=== PATIENT | male | born 1945 | race Caucasian/White ===

== ENCOUNTER 2017-08-21 15:05 | Inpatient (IN) | payer MEDICARE, OTHER ==
--- NOTE | 2017-08-21 15:54 | ED ---
Upper Extremity HPI - General Chief Complaint: Extremity Injury, Upper Stated Complaint: Hand infection Time Seen by Provider: 08/21/17 15:30 Source: patient Mode of arrival: ambulatory Limitations: no limitations - History of Present Illness Initial Comments: Patient presents with pain and swelling on the left pinky finger. Patient states that last he poked it with a piece of plastic pipe, at the base of the pinky on his palmar side. States no foreign bodies or broken pieces that he knows of. Was seen by primary care physician who gave him a shot of Rocephin and prescribed him Bactrim. States she's been taking Bactrim for 2 days. States swelling on the backside of his hand improve, however he has had increased swelling and redness of the left pinky finger. - Related Data Home Medications Medication Instructions Recorded Confirmed Albuterol Nebulized (Conc) 2.5 mg INHALATION RT-Q4H PRN 08/21/17 08/21/17 [Ventolin Nebulized (Conc)] Citalopram Hydrobromide [CeleXA] 30 mg PO DAILY 08/21/17 08/21/17 buPROPion XL [Wellbutrin Xl] 150 mg PO DAILY 08/21/17 08/21/17 Allergies Allergy/AdvReac Type Severity Reaction Status Date / Time No Known Allergies Allergy Verified 08/21/17 15:47 Review of Systems ROS Statement: Those systems with pertinent positive or pertinent negative responses have been documented in the HPI. ROS Other: All systems not noted in ROS Statement are negative. Constitutional: Denies: fever, chills Eyes: Denies: vision change ENT: Denies: throat pain Respiratory: Denies: dyspnea Cardiovascular: Denies: chest pain, palpitations Endocrine: Denies: fatigue Gastrointestinal: Denies: abdominal pain, nausea, vomiting Musculoskeletal: Reports: joint swelling, arthralgia. Denies: myalgia Skin: Reports: other (erythema of finger) Neurological: Denies: headache, weakness, numbness Past Medical History Past Medical History: No Reported History History of Any Multi-Drug Resistant Organisms: None Reported Past Surgical History: Orthopedic Surgery Past Psychological History: No Psychological Hx Reported Smoking Status: Never smoker Past Alcohol Use History: Occasional Past Drug Use History: None Reported General Exam - General Exam Comments Initial Comments: Sitting up in bed smiling. No acute distress. Conversing normally. Calm, pleasant. Well appearing. Well-dressed. Not appear in pain. Limitations: no limitations General appearance: alert, in no apparent distress Head exam: Present: atraumatic, normocephalic Eye exam: Present: normal appearance, PERRL, EOMI ENT exam: Present: mucous membranes moist Neck exam: Present: normal inspection. Absent: meningismus Respiratory exam: Present: normal lung sounds bilaterally. Absent: respiratory distress, wheezes, rales Cardiovascular Exam: Present: regular rate, normal rhythm GI/Abdominal exam: Present: soft. Absent: distended, tenderness Extremities exam: Present: other (Moderate swelling of the entire left pinky finger. No swelling of the hand appreciated. 5 mm scab palmar surface of left hand at the base of the left pinky finger. Mild pain with passive extension the pinky finger. Mild tenderness over palmar surface of left pinky finger. Base of left piggy finger appears erythematous.) Neurological exam: Present: alert, oriented X3 Psychiatric exam: Present: normal affect, normal mood Skin exam: Present: warm, dry, erythema (See extremities above.) Course Vital Signs 08/21/17 15:13 Temperature 97.6 F Pulse Rate 81 Respiratory 16 Rate Blood Pressure 194/90 O2 Sat by Pulse 96 Oximetry Medical Decision Making - Medical Decision Making Patient given Rocephin, 2 days of Bactrim, with worsening. Concern for possible flexor tenosynovitis. We'll obtain x-ray to rule out foreign body. We 'll start vancomycin and Rocephin. Xray negative for foreign body SPoke with ortho team, request admit to Dr Olmedo, consult to ID Dr Morrissey, will come see tonight for possible debridement, NPO. Patient updated with results and plan. Antibiotics infusing. Patient nothing by mouth. - Lab Data Result diagrams: 08/21/17 16:35 08/21/17 16:35 Lab Results 08/21/17 08/21/17 Range/Units 16:35 16:35 WBC 6.3 (3.8-10.6) k/uL RBC 4.87 (4.30-5.90) m/uL Hgb 16.0 (13.0-17.5) gm/dL Hct 45.5 (39.0-53.0) % MCV 93.5 (80.0-100.0) fL MCH 32.8 (25.0-35.0) pg MCHC 35.0 (31.0-37.0) g/dL RDW 13.0 (11.5-15.5) % Plt Count 217 (150-450) k/uL Neutrophils % 64 % Lymphocytes % 24 % Monocytes % 6 % Eosinophils % 3 % Basophils % 0 % Neutrophils # 4.0 (1.3-7.7) k/uL Lymphocytes # 1.5 (1.0-4.8) k/uL Monocytes # 0.4 (0-1.0) k/uL Eosinophils # 0.2 (0-0.7) k/uL Basophils # 0.0 (0-0.2) k/uL Sodium 140 (137-145) mmol/L Potassium 4.5 (3.5-5.1) mmol/L Chloride 105 (98-107) mmol/L Carbon Dioxide 24 (22-30) mmol/L Anion Gap 11 mmol/L BUN 20 (9-20) mg/dL Creatinine 0.90 (0.66-1.25) mg/dL Est GFR (CKD-EPI)AfAm >90 (>60 ml/min/1.73 sqM) Est GFR (CKD-EPI)NonAf 85 (>60 ml/min/1.73 sqM) Glucose 97 (74-99) mg/dL Calcium 9.2 (8.4-10.2) mg/dL Disposition Clinical Impression: Flexor tenosynovitis of finger Disposition: ADMITTED IP TO THIS [facility] Condition: Good Referrals: Neelima Maciel MD [Primary Care Provider] - 1-2 days
[2017-08-21] MEDS ORDERED: VANCOMYCIN IV PER PHARMACY 1 EACH MISC MISCELLANE PRN (16:02)
[2017-08-21] MEDS ORDERED: cefTRIAXone IN SWFI 1,000 MG/10 ML SYRINGE IVP STA (16:09)
[2017-08-21] MEDS ORDERED: VANCOMYCIN 1,250 MG in SODIUM CHLORIDE 0.9% 250 ML IVPB STA (16:13)
--- NOTE | 2017-08-21 16:16 | XR ---
EXAMINATION TYPE: XR hand limited LT DATE OF EXAM: 08/21/2017 CLINICAL HISTORY: Infection of the left posterior hand with swelling, pain, and redness after fibergl ass injury. TECHNIQUE: Frontal and lateral images of the left hand are obtained. COMPARISON: None. FINDINGS: There is no acute fracture/dislocation evident in the left hand. The joint spaces in the l eft hand appear within normal limits. The overlying soft tissue appears unremarkable. IMPRESSION: There is no acute fracture or dislocation in the left hand. No radiopaque foreign body.
[2017-08-21 16:53] LABS: Basophils % (A) 0 %; Eosinophils # (A) 0.2 k/uL (0-0.7); Eosinophils % (A) 3 %; HCT 45.5 % (39.0-53.0); Lymphocytes # (A) 1.5 k/uL (1.0-4.8); Lymphocytes % (A) 24 %; MCH 32.8 pg (25.0-35.0); MCV 93.5 fL (80.0-100.0); Mean Platelet Volume 6.8; Monocytes # (A) 0.4 k/uL (0-1.0); Monocytes % (A) 6 %; Neutrophils % (A) 64 %; Platelet Count 217 k/uL (150-450); RBC 4.87 m/uL (4.30-5.90); WBC 6.3 k/uL (3.8-10.6)
[2017-08-21 17:00] LABS: Anion Gap 11 mmol/L; Blood Urea Nitrogen 20 mg/dL (9-20); Calcium 9.2 mg/dL (8.4-10.2); Carbon Dioxide 24 mmol/L (22-30); Chloride 105 mmol/L (98-107); Glucose 97 mg/dL (74-99); Potassium 4.5 mmol/L (3.5-5.1); Sodium 140 mmol/L (137-145)
[2017-08-21] MEDS ORDERED: NALOXONE 0.4 MG/ML 1 ML VIAL IV PRN (17:04)
[2017-08-21 18:27] VITALS: BMI 22.0
[2017-08-21] MEDS: cefTRIAXone IN SWFI 1,000 MG/10 ML SYRINGE IVP SCH (19:04)
[2017-08-21] MEDS: SODIUM CHLORIDE 0.9% 1,000 ML IV SCH (19:04)
--- NOTE | 2017-08-21 19:45 | P.HPOR ---
History of Present Illness H&P Date: 08/21/17 Chief Complaint: Left small finger pain and swelling likely infection Patient is a very pleasant 71-year-old male who presented to the emergency room today regards to swelling and pain in his left small finger. He is right-hand dominant. He underwent an issue about a week ago when he was holding a plastic pipe and splinter in his hand around the small finger. This worsened over the course of the week and became red and swollen. Yesterday he presented to his primary care physician who gave him a shot of Rocephin and started him on Bactrim DS. He started the Bactrim discussed this morning. He was having some worsening and presented to the emergency room where he had evaluation x-rays and was ultimately admitted for possible flexor tenosynovitis. He was started on vancomycin here in the hospital and has been making good progress thus far here in the hospital. He says he is not having any significant pain. He is able to move his finger. He denies any fevers chills. Denies any other problems other injuries. Review of Systems he denies pain in his wrist or elbow. Denies any chest pain short Buitrago. He denies any recent illness. Denies any prior problems with hisleft hand. He is [id number] Past Medical History Past Medical History: No Reported History (He has some history of anxiety) History of Any Multi-Drug Resistant Organisms: None Reported Past Surgical History: Orthopedic Surgery Past Anesthesia/Blood Transfusion Reactions: No Reported Reaction Past Psychological History: No Psychological Hx Reported Smoking Status: Never smoker Past Alcohol Use History: Occasional Past Drug Use History: None Reported - Past Family History mother History Unknown: Yes Family Medical History: Diabetes Mellitus Medications and Allergies Home Medications Medication Instructions Recorded Confirmed Type Albuterol Nebulized (Conc) 2.5 mg INHALATION RT-Q4H PRN 08/21/17 08/21/17 History [Ventolin Nebulized (Conc)] Citalopram Hydrobromide [CeleXA] 30 mg PO DAILY 08/21/17 08/21/17 History buPROPion XL [Wellbutrin Xl] 150 mg PO DAILY 08/21/17 08/21/17 History Allergies Allergy/AdvReac Type Severity Reaction Status Date / Time No Known Allergies Allergy Verified 08/21/17 15:47 Physical Examination Osteopathic Statement: *. No significant issues noted on an osteopathic structural exam other than those noted in the History and Physical/Consult. - Wrist & Hand left Location of pain: volar hand, small finger (At his left small finger he has a scab over the head of the metacarpal. There is no active drainage. There is some swelling and some erythema around the area. There is swelling over his small finger. There is no streaking up his arm. There is no erythema in his palm. He is nontender over his palm. He is able to have some motion though it is somewhat limited due to the swelling in his finger. He is able to flex and extend his finger actively. There is no significant pain with active stretch at his small finger or his other fingers. He is able to move his wrist fully without any hesitation or pain he has full active and passive range motion in his elbow and shoulder.Nontender. His chest is good excursion deep inspection expiration abdomen soft nontender his lower extremity is full active and passive range of motion.) Results His white count is normal. He is afebrile. - Labs Labs: H & H 08/21/17 Range/Units 16:35 Hgb 16.0 (13.0-17.5) gm/dL Hct 45.5 (39.0-53.0) % Result Diagrams: 08/21/17 16:35 08/21/17 16:35 - Diagnostic results Wrist/Hand x-ray: report reviewed (I reviewed the x-ray of his left hand and fingers. There is no obvious foreign body. There is some soft tissue swelling the small finger. There is no active dislocation there is no fracture.), image reviewed Assessment and Plan Assessment: Swelling at the left small finger with cellulitis Possible retained foreign body left small finger Possible flexor tenosynovitis Plan: Swelling at the left small finger with cellulitis Possible retained foreign body left small finger Possible flexor tenosynovitis The patient has swelling over his left small finger due to an injury from a piece of plastic approximately week ago. This is worsening and he started on some antibiotics yesterday. He continued to have some swelling today and was admitted hospital in this regard. He has motion at his small finger and does not appear to have acute flexor tenosynovitis. There is no pain out of proportion and he does not have sausage digits or streaking. His white count is normal and he is afebrile. He has been making some progress with antibiotics here in Hospital and we should continue that through the night. I do not have plans for surgical intervention today however if his symptoms not continue to improve we may consider surgical intervention. Is okay for him to eat tonight but we'll make him nothing by mouth after midnight tonight for possible irrigation and debridement of the wound site in his left small finger and hand. He may have retained foreign body at the area which is perpetuating the swelling and infection. He does have some some local cellulitis which seems to be improving but there is some swelling which may were present some fluid under pressure which may require surgical intervention with irrigation and debridement. I will reevaluate him in the morning and decide whether or not to proceed with surgical intervention tomorrow. We'll make him nothing by mouth after minutes and then the schedule tentatively. I discussed the risk of his hand infection and the risk of occasions alternatives and benefits associated with his injury as well as surgical intervention. I answered his questions best my ability and he is agreeable.
[2017-08-21] MEDS ORDERED: amLODIPine 5 MG TAB PO SCH (21:08)
[2017-08-22] MEDS ORDERED: VANCOMYCIN 1,250 MG in SODIUM CHLORIDE 0.9% 250 ML IVPB SCH (05:00)
[2017-08-22] MEDS: SODIUM CHLORIDE 0.9% 1,000 ML IV SCH (05:57)
--- NOTE | 2017-08-22 09:00 | P.DS ---
Providers Date of admission: 08/21/17 17:16 Attending physician: Dandre Olmedo Consults: 08/21/17 17:06 Consult Physician Routine Consulting Provider: Santi Morrissey Consult Reason/Comments: flexor tenosynovitis Do you want consulting provider notified?: Yes 08/21/17 19:52 Consult Physician Routine Consulting Provider: Jamal Davila Consult Reason/Comments: For medical management Do you want consulting provider notified?: Yes Primary care physician: Neelima Maciel Hospital Course: The patient presented on the day of admission as per his history and physical. He had swelling and erythema at his left hand toward his small finger due to an injury that occurred with a piece of plastic cutting his hand approximately a week ago. He went through one day of antibiotics but was having some worsening and presented to the hospital where he was admitted and started on IV antibiotics. Overnight he has done significantly better and the swelling is decreased as has the erythema and redness. He is not having any pain in his fingers he has good motion of his fingers and hand. He is not having any fevers chills. Physical Exam At his left hand the erythema is significantly decreased. There is limited swelling over a small 0.5 x 1.5 cm space around the half centimeter in wound. There is no active drainage. He has good motion in his finger and hand. There is no pain out of proportion. There is no pain with passive stretch. Abdomen soft and nontender. Chest has good excursion with deep inspiration and expiration. The patient has active and passive range of motion intact at the upper and lower extremities. There is no acute change in neurologic status. Hospital Course Cellulitis left hand and small finger. Small superficial abscess at the base of the small finger Significant improvement with antibiotics No evidence of flexor tenosynovitis The patient's symptoms improved significantly with the antibiotics here in Hospital. His erythema has decreased as has the swelling. There is a small area at the volar aspect of the fifth metacarpal head at the base of his pinky and I think that we can open up that space here bedside. Today at bedside I divided the superficial aspect of the wound at the volar aspect of his small finger and hand. His proximal half centimeter in size. I was able to probe into the space approximately 3-5 mm deep. There is no significant pus or purulence. There is some cloudy blood and discharge at the space. I did not see any foreign body or material. This was performed under loupe magnification. There is no increased fluid from milking the flexor tendons. There is no evidence of involvement of the flexor tendon. The fluid appeared to be superficial in the soft pad overlying his metacarpal head. There did not seem to be any joint involvement. The wound was copiously irrigated with 1 L of normal saline. There is no evidence of purulence or pus. The area was cleaned and dressed with Telfa 4 x 4's and a Juan wrap. The patient tolerated the procedure well at bedside. The patient has made good improvement and it is okay for him to be discharged home today with oral antibiotics. I think it is okay for him to resume the Bactrim that was prescribed. He should continue local wound care over the area and keep the site clean. I would like to see him back on Thursday at the office for recheck evaluation. He is instructed if he is having significant worsening to return to the hospital. I discussed this with him at length and third his questions best my ability. I spoke with his as well. They are agreeable. Overnight the patient did have some readings of elevated blood pressure in the 180s over 80s. He says he has not had issues with this before. He checks his blood pressure regularly and says that he will follow-up with this with his primary care physician, Dr. Maciel. The patient is okay for discharge home this morning with continued oral antibiotics and follow up on Thursday with me. Patient Condition at Discharge: Fair Plan - Discharge Summary New Discharge Prescriptions: No Action buPROPion XL [Wellbutrin Xl] 150 mg PO DAILY Citalopram Hydrobromide [CeleXA] 30 mg PO DAILY Albuterol Nebulized (Conc) [Ventolin Nebulized (Conc)] 2.5 mg INHALATION RT- Q4H PRN PRN Reason: Shortness Of Breath Discharge Medication List Albuterol Nebulized (Conc) [Ventolin Nebulized (Conc)] 2.5 mg INHALATION RT-Q4H PRN 08/21/17 [History] Citalopram Hydrobromide [CeleXA] 30 mg PO DAILY 08/21/17 [History] buPROPion XL [Wellbutrin Xl] 150 mg PO DAILY 08/21/17 [History] Follow up Appointment(s)/Referral(s): Neelima Maciel MD [Primary Care Provider] - 1-2 days Dandre Olmedo DO [Doctor of Osteopathic Medicine] - 08/24/17 8:00 am (Patient [facility] Thursday[facility] at 8 AM. Patient should let the front end loader driver at the office know that he was seen at Hospital and that I instructed him to show up at the office for an appointment for Thursday, as there may be limited medication with the office over the weekend prior to his arrival.) Activity/Diet/Wound Care/Special Instructions: Keep wound site clean. May change dressing with dry dressing tomorrow morning. Keep the area dry. Avoid heavy work with left hand. He should continue with his oral Bactrim that he was prescribed by Dr. Maciel. He should restart that later today. Discharge Disposition: HOME SELF-CARE
[2017-08-22 09:16] VITALS: BP 153/83; PULSE 85; RESP 20; TEMP 98.7
[2017-08-22] MEDS: cefTRIAXone IN SWFI 1,000 MG/10 ML SYRINGE IVP SCH (09:27)
== END 2017-08-22 09:45 | disposition home or self-care (01) | DRG 603 ==
LOC: EC 15:05 → 3SUR 17:16
PROVIDERS: ADMIT Orthopaedic Surgery Orthopaedic Surgery of the Spine; ATTEND Orthopaedic Surgery Orthopaedic Surgery of the Spine
DX: L03.012 Cellulitis of left finger (principal); F41.9 Anxiety disorder, unspecified; R03.0 Elevated blood-pressure reading, without diagnosis of hypertension; Z79.899 Other long term (current) drug therapy; Z83.3 Family history of diabetes mellitus
CPT/HCPCS: 36415; 80048; 85025; 96365; 96375; 99284

== ENCOUNTER → 2019-05-11 | Outpatient (CLI) | payer MEDICARE ==
--- NOTE | 2019-05-11 10:08 | MR ---
EXAMINATION TYPE: MR iac wo/w con DATE OF EXAM: 05/11/2019 COMPARISON: None HISTORY: Imbalance TECHNIQUE: Multiplanar, multisequence images of the brain and brainstem is performed with high-resolution and sm all [id number] images through the internal auditory canals without and with IV contrast, utilizing 7 mL intravenous Gadavist . FINDINGS: Diffusion weighted images demonstrate no evidence of a recent infarct or other diffusion ab normality. There is no extra-axial fluid collection. There is extensive confluent hyperintensity in the periventricular white matter on inversion recovery T2-weighted sequences, scattered hyperintensi ties are also present in the subcortical and juxtacortical white matter, there are approximately 50 o r more lesions present. The ventricular system and cisternal spaces are normal in size and appearance . The brain volume is age appropriate, there is cortical atrophy. Midline structures demonstrate normal morphology. The craniocervical junction appears within normal limits. Post contrast images demonstrate no abnormal enhancement. The dural venous sinuses appear pa tent. The visualized sinuses are clear and the globes are intact. IMPRESSION: Age-related changes of atrophy and chronic small vessel ischemia. No evident cerebellopon lynette angle mass or abnormal enhancement along the internal auditory canals.
== END | disposition home or self-care (01) ==
LOC: RADMRIMAIN 08:01
PROVIDERS: ATTEND Otolaryngology
DX: I67.82 Cerebral ischemia (principal); G31.9 Degenerative disease of nervous system, unspecified
CPT/HCPCS: 70553; A9585

== ENCOUNTER → 2019-08-10 | Outpatient (CLI) | payer MEDICARE ==
--- NOTE | 2019-08-10 11:56 | XR ---
EXAMINATION TYPE: XR chest 2V DATE OF EXAM: 08/10/2019 COMPARISON: NONE HISTORY: Chronic cough for 4 months. TECHNIQUE: Frontal and lateral views of the chest are obtained. FINDINGS: Pectus excavatum deformity. There is no focal air space opacity, pleural effusion, or pneum othorax seen. The cardiac silhouette size is within normal limits. The osseous structures are inta ct. IMPRESSION: No suspicious acute pulmonary process.
== END | disposition home or self-care (01) ==
LOC: RADXRMAIN 11:34
PROVIDERS: ATTEND Family Medicine
DX: R05 Cough (principal); R26.89 Other abnormalities of gait and mobility
CPT/HCPCS: 71046

== ENCOUNTER → 2019-09-28 | Outpatient (CLI) | payer MEDICARE ==
--- NOTE | 2019-09-28 14:54 | ECHOF ---
Referral Reason: MEASUREMENTS -------- HEIGHT: 170.2 cm WEIGHT: 66.7 kg BP: IVSd: 1.1 cm (0.6 - 1.1) LVIDd: 3.5 cm (3.9 - 5.3) LVPWd: 1.1 cm (0.6 - 1.1) IVSs: 1.2 cm LVIDs: 2.1 cm LVPWs: 1.5 cm Ao Diam: 3.1 cm (2.0 - 3.7) AV Cusp: 2.1 cm (1.5 - 2.6) LA Diam: 3.0 cm (2.7 - 3.8) MV EXCURSION: 17.007 mm (> 18.000) MV EF SLOPE: 111 mm/s (70 - 150) EPSS: 1.0 cm MV E Cortez: 0.59 m/s MV DecT: 199 ms MV A Cortez: 0.62 m/s MV E/A Ratio: 0.95 RAP: 5.00 mmHg RVSP: 28.31 mmHg FINDINGS -------- Sinus rhythm. This was a technically adequate study. The left ventricular size is normal. Left ventricular wall thickness is normal. Overall left vent ricular systolic function is normal with, an EF between 55 - 60 %. The right ventricle is normal in size. The left atrial size is normal. The right atrial size is normal. Interatrial and interventricular septum intact. The aortic valve is trileaflet, and appears structurally normal. No aortic stenosis or regurgitation. The mitral valve is normal. Mild mitral regurgitation is present. The tricuspid valve appears structurally normal. Moderate tricuspid regurgitation present. Right ventricular systolic pressure is normal at < 35 mmHg. There is no pulmonic regurgitation present. The aortic root size is normal. Normal inferior vena cava with normal inspiratory collapse consistent with estimated right atrial pre ssure of 5 mmHg. There is a trivial pericardial effusion present. CONCLUSIONS -------- 1. Left ventricular wall thickness is normal. 2. Overall left ventricular systolic function is normal with, an EF between 55 - 60 %. 3. The right ventricle is normal in size. 4. The left atrial size is normal. 5. The right atrial size is normal. 6. The aortic valve is trileaflet, and appears structurally normal. No aortic stenosis or regurgitati on. 7. Mild mitral regurgitation is present. 8. Moderate tricuspid regurgitation present. 9. Right ventricular systolic pressure is normal at < 35 mmHg. 10. There is no pulmonic regurgitation present. 11. There is a trivial pericardial effusion present. [employer] PROGRAM MANAGER: Marni Grajeda RDCS
--- NOTE | 2019-09-28 15:57 | EST ---
EXERCISE STRESS AGE: SEX: M HT: 67" WT: 147 lbs. PROTOCOL: Sam STAGE: 2 DURATION OF EXERCISE: 6:13 HEART RATE REST: 80 BLOOD PRESSURE REST: 153/72 MAXIMUM HEART RATE ACHIEVED: 128 MAXIMUM BLOOD PRESSURE: 214/85 85% MPHR: 124 100% MPHR: 146 METS: 7.5 INDICATIONS: Fatigue, dyspnea CLINICAL INFORMATION: Baseline rhythm is a sinus mechanism, rate of 80, normal axis and intervals, poor R- wave progression from V1 to V3. Baseline blood pressure 153/72 mmHg. Patient exercised on Sam protocol for 6 minute 13 seconds reaching peak rate of 127 beats per minute which is equal to 87% maximum predicted heart rate. Peak blood pressure 214/85 mmHg. Test was terminated due to fatigue. There was no chest pain. Electrocardiograph monitoring revealed occasional PVCs. There was 0.[address]- segment depression that resolved rapidly in recovery. RESULTS: 1. Average exercise tolerance with no chest discomfort. 2. Occasional PVCs. 3. Borderline positive electrocardiograph stress testing with 0.[address]- segment depression. MMODL / IJN: [id number] /
== END | disposition home or self-care (01) ==
LOC: RADNMMAIN 10:30
PROVIDERS: ATTEND Family Medicine
DX: I08.1 Rheumatic disorders of both mitral and tricuspid valves (principal); I49.3 Ventricular premature depolarization; R94.31 Abnormal electrocardiogram [ECG] [EKG]
CPT/HCPCS: 93017; 93306

== ENCOUNTER → 2020-02-02 | Outpatient (CLI) | payer MEDICARE ==
[2020-02-02 09:54] LABS: INR 1.1 (<1.2); Partial Thromboplastin Time 37.6 sec (22.0-30.0); Prothrombin Time 10.9 sec (9.0-12.0)
[2020-02-02 16:35] LABS: Hemoglobin A1C 5.2 % (4.0-6.0)
[2020-02-02 21:54] LABS: Cardiolipin Ab IgG Interp NEGATIVE (NEGATIVE); Cardiolipin Ab IgM Interp Positive (NEGATIVE); Cardiolipin IgA Antibody 26.9 U/mL
[2020-02-03 14:11] LABS: APTT 89 Sec(s) (<43); APTT 1:1 Mix 66 Sec(s) (<43); DRVVT 1:1 Mix 73 Sec(s) (<44); DRVVT Confirmation Positive (Negative); Dilute Russell Viper Venom 105 Sec(s) (<44); Hexagonal Phase Neutralization Positive (Negative)
== END | disposition home or self-care (01) ==
LOC: LABWHC1 09:03
PROVIDERS: ATTEND Psychiatry & Neurology Neurology
DX: I67.9 Cerebrovascular disease, unspecified (principal); R73.9 Hyperglycemia, unspecified; R93.0 Abnormal findings on diagnostic imaging of skull and head, not elsewhere classified
CPT/HCPCS: 36415; 83036; 83090; 85610; 85613; 85652; 85730; 86038; 86147

== ENCOUNTER → 2020-07-31 | Outpatient (CLI) | payer MEDICARE ==
--- NOTE | 2020-07-31 16:31 | CT ---
CT CHEST FOR PULMONARY EMBOLISM. EXAMINATION TYPE: CT angio chest DATE OF EXAM: 07/31/2020 INDICATION: Shortness of breath and cough. CT DLP: 184.8 mGycm, Automated exposure control for dose reduction was used. CONTRAST: Patient injected with 100 mL of Isovue 370. COMPARISON: None TECHNIQUE: CT of the chest is performed on a spiral scan at 2 mm thick sections. Study is performed with intravenous contrast timed for evaluation for pulmonary embolism. This will limit additional po rtions of the evaluation. 3-D MIP images reconstructed by the technologist are reviewed on the compu ter in the coronal and sagittal planes. FINDINGS: No persistent filling defects are evident to suggest an acute pulmonary embolism. No mediastinal or hilar adenopathy enlarged by CT criteria is evident. The ascending aorta diameter at the level of the main pulmonary artery is 2.7 cm. The main pulmonary artery diameter at the bifur cation is 2.0 cm. Some mild right heart strain may be present with reflux into the inferior vena cava and hepatic veins. Lung windows are clear. Limited CT section through the upper abdomen are unremarkable. IMPRESSIONS: 1. No acute pulmonary embolism. 2. Some right heart strain should be considered.
== END | disposition home or self-care (01) ==
LOC: RADCTMAIN 10:32
PROVIDERS: ATTEND Internal Medicine Hematology & Oncology
DX: I51.9 Heart disease, unspecified (principal)
CPT/HCPCS: 82565; 84520; 71275; 36415; Q9967

== ENCOUNTER → 2021-02-23 | Outpatient (CLI) | payer MEDICARE ==
--- NOTE | 2021-02-23 09:03 | MR ---
MRI brain without contrast. HISTORY: Memory loss. COMPARISON: 05/11/2019. TECHNIQUE: Multiecho multiplanar images the brain were obtained without contrast. FINDINGS: The ventricles, basal cisterns and sulci over convexities are moderately enlarged consistent with mod erate generalized atrophy. There are multifocal areas and diffuse areas of abnormal increased signal intensity in the white rashida er both cerebral hemispheres consistent with chronic ischemic white matter demyelination. Based on diffusion-weighted imaging, there is no diffusion restriction or acute ischemic event. There is no mass effect or shift of midline structures. There are multiple small remote lacunar infarcts in the left cerebellum. The brainstem and fourth helena tricle are normal. The intraorbital contents appear normal and symmetric. Otherwise paranasal sinuses and mastoid air ce lls are well aerated. IMPRESSION: 1. 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 2. No mass effect. 3. No acute ischemic event.
== END | disposition home or self-care (01) ==
LOC: RADMRIMAIN 07:51
PROVIDERS: ATTEND Psychiatry & Neurology Neurology
DX: G37.9 Demyelinating disease of central nervous system, unspecified (principal); I63.81 Other cerebral infarction due to occlusion or stenosis of small artery
CPT/HCPCS: 70551

== ENCOUNTER → 2021-06-03 | Outpatient (CLI) | payer MEDICARE ==
--- NOTE | 2021-06-03 12:27 | XR ---
EXAMINATION TYPE: XR lumbar spine 3V, XR Hip Complete 2 views LT DATE OF EXAM: 06/03/2021 Comparison: None Clinical History: 75-year-old male M16.12, M54.50 Findings: Lumbar spine: 5 lumbar type vertebral bodies. There may be moderate to large stool burden. Atherosclerotic calcific ations throughout the abdominal aorta. Mild multilevel degenerative disc disease with mild disc space narrowing and disc bulging. Trace grade 1 retrolisthesis L1-L2. Hypertrophic facet arthropathy throu ghout the lumbar spine. Vertebral body heights are preserved. Left hip: There is mild degenerative change of the left hip. While joint space is maintained, there is prominen t collar osteophytes of the femoral head neck junction. No acute fracture, subluxation, dislocation s een. Probable vasectomy clips. Impression: 1. Lumbar spine: No vertebral compression collapse. Hypertrophic facet arthropathy throughout with de generative trace grade 1 retrolisthesis L1-L2. Mild multilevel degenerative disc disease. There appea rs to be moderate to large stool burden. 2. Left hip: Mild left hip OA. No acute osseous abnormality seen.
== END | disposition home or self-care (01) ==
LOC: RADXRMAIN 11:13
PROVIDERS: ATTEND Physical Medicine & Rehabilitation
DX: M16.12 Unilateral primary osteoarthritis, left hip (principal); M51.36 Other intervertebral disc degeneration, lumbar region; M43.16 Spondylolisthesis, lumbar region
CPT/HCPCS: 72100; 73502

== ENCOUNTER 2021-08-27 07:50 | Day surgery (SDC) | payer MEDICARE ==
[~2021-08-27 07:50] MED LIST: LACTATED RINGERS 1,000 ML IV SCH; LIDOCAINE 1% (10MG/ML) FOR IV START INTRADERMA PRN
[2021-08-27 09:24] VITALS: BP 164/74; PULSE 78; RESP 20; TEMP 97.9
== END 2021-08-27 09:40 | disposition home or self-care (01) ==
LOC: ORPAIN 07:50
PROVIDERS: ATTEND Specialist
DX: R94.02 Abnormal brain scan (principal); Z53.09 Procedure and treatment not carried out because of other contraindication

== ENCOUNTER 2021-09-12 08:41 | Day surgery (SDC) | payer MEDICARE ==
[2021-09-11 09:33] VITALS: BMI 21.9
[2021-09-12 09:26] VITALS: TEMP 96.7
[2021-09-12] MEDS ORDERED: LACTATED RINGERS 1,000 ML IV ONE (09:31)
[2021-09-12] MEDS ORDERED: fentaNYL (PF) 50 MCG/ML 2 ML AMP ONE (10:07)
[2021-09-12] MEDS ORDERED: MIDAZOLAM 2 MG/2 ML VIAL ONE (10:07)
--- NOTE | 2021-09-12 10:22 | P.PCN ---
Date of Procedure: 09/12/21 Procedure(s) Performed: Preoperative diagnosis: Multiple sclerosis Post operative diagnoses: Multiple sclerosis Procedure= lumbar puncture Anesthesia= moderate sedation with Versed 1 mg and fentanyl 50 g,and local infiltration with lidocaine 1% 2 mL. Condition: stable Complication: none. Description of the procedure procedure risk and benefits discussed with the patient and family, consent signed. Patient and the procedure area placed in sitting positions, back prepped with chlorhexidine 3 times been local infiltration of the skin and subcutaneous tissue with lidocaine 1% 2 mL for skin and subcu interstitial frustrations at L4 5 levels then 22-gauge Quincke-type needle advanced slowly at L4- 5 interlaminar space there was positive cerebrospinal fluid which was clear, no heme, no paresthesia ,total of 8 ML of clear cerebrospinal fluid collected in 4 different tubes 2 mL in each, then the needle removed and a Band-Aid applied and patient tolerated the procedure well without any complications.
[2021-09-12] MEDS ORDERED: IV FLUID CONTINUATION 1,000 ML IV ONE ×2 (10:28)
[2021-09-12 10:43] VITALS: BP 138/73; PULSE 79; RESP 17
[2021-09-12 17:08] LABS: Glucose,CSF 65 mg/dL (40-70); Total Protein,CSF 41 mg/dL (12-60)
[2021-09-12 17:28] LABS: Appearance,CSF Clear; CSF Tube Volume 2
[2021-09-12 17:38] LABS: Nucleated Cells, CSF 1 u/L (0-5); Red Blood Cell,CSF 0 u/L (0-10)
[2021-09-13 07:41] LABS: CSF Tube Number 4
[2021-09-16 14:09] LABS: IgG Synthesis Rate 0.13 mg/day (0.00 - 3.00); IgG/Albumin Index (CSF) 0.65 (0.00 - 0.77); Immunoglobulin G 774 mg/dL (700 - 1600)
== END 2021-09-12 11:39 | disposition home or self-care (01) ==
LOC: ORPAIN 08:41
PROVIDERS: ATTEND Specialist
DX: G35 Multiple sclerosis (principal); Z79.02 Long term (current) use of antithrombotics/antiplatelets
CPT/HCPCS: 84157; 82945; 82040; 82042; 82784; 83916; 89050; 62270; J2250; J3010

== ENCOUNTER → 2021-12-18 | Outpatient (CLI) | payer MEDICARE ==
--- NOTE | 2021-12-18 09:28 | MR ---
EXAMINATION TYPE: MR brain wo con DATE OF EXAM: 12/18/2021 COMPARISON: 02/23/2021 HISTORY: 76-year-old male R41.3, R94.02, Memory loss, CVA, F/U past MRI TECHNIQUE: Multiplanar, multisequence images of the brain and brainstem were acquired without IV con trast. Diffusion weighted imaging is performed. FINDINGS: No evidence for acute infarction, hemorrhage, mass, mass effect, midline shift, herniation, effacemen t of basal cisterns, or extra-axial fluid collection. There is moderate generalized supratentorial volume loss. Secondary mild ventriculomegaly from centra l cerebral atrophy. T2/FLAIR weighted sequences show moderate to severe patchy and confluent bright white matter change i n both cerebral hemispheres throughout the periventricular, deep white matter, and subcortical region s. Small area of old cortical infarct left postcentral gyrus, unchanged from prior. Major intracranial flow voids are intact. Incidental hypoplastic A1 segment right anterior cerebral a rtery. T2-weighted FLAIR images and T2-weighted images show T2 bright signal foci in the juxtacortical and p eriventricular white matter of both cerebral hemispheres. Midline structures demonstrate normal morphology. The craniocervical junction is normal. Post contrast images demonstrate no evidence of pathologic enhancement. Dural venous sinuses are pat ent. Mild mucosal thickening ethmoid air cells and maxillary sinuses. Leftward nasal septal deviation. Maricarmen bes are intact. IMPRESSION: 1. Similar moderate generalized atrophy. Mild ventriculomegaly is also similar, likely secondary to c entral cerebral volume loss. 2. Moderate to severe patchy and confluent burden of chronic small vessel ischemic disease, unchanged from prior. Small area of old cortical infarct left-sided postcentral gyrus, also unchanged. No acut e intracranial abnormality seen. 3. Mild chronic ethmoid and maxillary sinus disease. Leftward nasal septal deviation.
== END | disposition home or self-care (01) ==
LOC: RADMRIMAIN 06:09
PROVIDERS: ATTEND Psychiatry & Neurology Neurology
DX: I67.82 Cerebral ischemia (principal); J34.2 Deviated nasal septum; I63.9 Cerebral infarction, unspecified
CPT/HCPCS: 70551

== ENCOUNTER → 2022-01-15 | Outpatient (CLI) | payer MEDICARE ==
--- NOTE | 2022-01-16 10:14 | US ---
EXAMINATION TYPE: US prostate transrectal DATE OF EXAM: 01/15/2022 COMPARISON: NONE CLINICAL HISTORY: R39.11, R97.2 elevated psa. elevated PSA in a year, nocturia x 2-3, dribble flow This examination was performed using the transrectal probe. EXAM MEASUREMENTS: Gland Size: 5.0 x 4.9 x 3.9cm Volume: 49.7 Predicted PSA: 5.9 Actual PSA (if available):3.6, up from 2.2 from last year Heterogeneous enlarged gland with no focal abnormality Initial images show seminal vesicles appear within normal limits. Prostate gland has some scattered c alcifications. Prostate gland is enlarged without hypoechoic nodule. IMPRESSION: As above. Findings consistent with BPH noted. Predicted PSA = volume x 0.12 ng/ml Calculated Volume = 0.5236 x L x W x H
== END | disposition home or self-care (01) ==
LOC: RADUSWWP 08:44
PROVIDERS: ATTEND Family Medicine
DX: R39.11 Hesitancy of micturition (principal); R97.20 Elevated prostate specific antigen [PSA]
CPT/HCPCS: 76872

== ENCOUNTER → 2022-11-26 | Outpatient (CLI) | payer MEDICARE ==
--- NOTE | 2022-11-26 11:36 | CT ---
EXAMINATION TYPE: CT sinus wo con CT DLP: 648 mGycm, Automated exposure control for dose reduction was used. DATE OF EXAM: 11/26/2022 11:28 AM COMPARISON: None. CLINICAL INDICATION:Male, 77 years old with history of J01.01 ACUTE RECURRENT MAXILLARY SINUSITIS; PH H, chronic sinusitis CONTRAST: None. TECHNIQUE: Multiple thin axial images were obtained through the paranasal sinuses without the use of IV contrast. Additional coronal and sagittal reformatted images were submitted for evaluation. FINDINGS: Dental amalgam creates streak artifact which limits evaluation. Frontal sinuses: Normally developed and aerated. Synechiae demonstrated bilaterally. Frontal Recess: Clear Maxillary Sinuses: Normally developed and aerated. Maxillary Infundibula([facility]): Clear, . Ethmoid sinuses: Normally developed and aerated. Ethmoidal notch: Protected and abutting the lateral lamina. Sphenoid sinuses: Normally developed and aerated. There is sellar sphenoid sinus pneumatization witho ut evidence of dehiscence. There is abutment of the left carotid canal and sphenoid sinus. No evidenc e of optic nerve dehiscence within the sphenoid sinus. Sphenoethmoidal recesses: Clear. Nasal septum: Moderately deviated to the left. Nasal Turbinates: Within normal limits. Mastoid air cells & middle ears: The air cells are clear. The middle ears are grossly unremarkable. Modified Soft tissues & Brain: Partially seen without gross abnormality. Bilateral aphakia. Other: Cribriform plate demonstrates symmetric Keros classification type 2 cribriform plate. No evidence of bony dehiscence of skull base. Lamina papyracea is intact without evidence of remote orbital fracture or orbital prolapse into the e thmoid sinus. IMPRESSION: 1. No significant mucosal sinus disease. 2. The ostiomeatal units, frontonasal and sphenoethmoidal recesses are clear.
== END | disposition home or self-care (01) ==
LOC: RADCTMAIN 11:11
PROVIDERS: ATTEND Otolaryngology
DX: J01.01 Acute recurrent maxillary sinusitis (principal)
CPT/HCPCS: 70486

== ENCOUNTER 2023-06-10 10:50 | Day surgery (SDC) | payer MEDICARE ==
[~2023-06-10 10:50] MED LIST changes: +HYDROmorphone 0.5 MG/0.5 ML SYRINGE IVP PRN; -LACTATED RINGERS 1,000 ML IV SCH; -LIDOCAINE 1% (10MG/ML) FOR IV START INTRADERMA PRN
[2023-06-10] MEDS ORDERED: ONDANSETRON 4 MG/2 ML VIAL ONE (11:12)
[2023-06-10] MEDS: FAMOTIDINE 20 MG/2 ML VIAL IV PRN (11:29)
[2023-06-10] MEDS: ONDANSETRON 4 MG/2 ML VIAL IVP ONE ×2 (11:29→14:46)
[2023-06-10] MEDS: DEXAMETHASONE SOD PHOSPHATE 4 MG/ML 1 ML VIAL IV ONE (11:29)
[2023-06-10] MEDS: LACTATED RINGERS 1,000 ML IV SCH (11:29)
[2023-06-10] MEDS ORDERED: LIDOCAINE 1% INJ 10MG/ML (20 ML MDV) ONE (13:00)
[2023-06-10] MEDS ORDERED: PROPOFOL 10 MG/ML 20 ML VIAL IV ONE (13:00)
[2023-06-10] MEDS ORDERED: fentaNYL (PF) 50 MCG/ML 2 ML AMP ONE (13:00)
[2023-06-10] MEDS ORDERED: PHENYLEPHRINE-0.9% NACL SYG 1,000 MCG/10 ML SYRINGE ONE (13:00)
[2023-06-10] MEDS ORDERED: SUCCINYLCHOLINE CHLORIDE 200 MG/10 ML VIAL IV ONE (13:00)
[2023-06-10] MEDS: LIDOCAINE 2%-EPI 1:100,000 20 ML VIAL SQ ONE (13:39)
[2023-06-10] MEDS: BACITRACIN ZINC 500 UNIT/GM OINT 28.4 GM TUBE TOPICAL ONE (13:45)
--- NOTE | 2023-06-10 13:59 | P.OP ---
Date of Procedure: 06/10/23 Preoperative Diagnosis: Bilateral cheek skin lesions Postoperative Diagnosis: Same Procedure(s) Performed: Excision left cheek skin lesion 3.2 cm with complex closure Excision right cheek skin lesion 3.1 cm with complex closure Anesthesia: KAITLYN Surgeon: Thong Rosado Estimated Blood Loss (ml): 3 Pathology: other (Bilateral cheek skin lesions) Condition: stable Disposition: PACU Indications for Procedure: Is a 77-year-old white male with slowly enlarging cheek skin lesions first noticed about a year ago. He had over these excised at outside institution with mechanical inspector. The right has recurred the left has some residual scarring and possible still some cyst that he would like to have reexcised also. Operative Findings: Cicatrix and papillomatous appearing skin with underlying induration right medial cheek approximate 11 mm. On the left medial cheek approximate 12 x 17 mm skin lesion with papillomatous appearing skin and with induration approximately 1 cm in depth overall both mildly pink no fluctuance Description of Procedure: The patient was brought to the operative suite and placed in a supine position. Patient underwent induction of general anesthesia with oral endotracheal intubation without difficulty. Patient prepped and draped in usual aseptic fashion. 2% lidocaine with 1 100,000 epinephrine was infused subcutaneously and field block fashion. This was left to work for 7 minutes vasoconstrictive effect. The left cheek skin lesion was then excised in the direction of the right skin tension lines grossly entirely including into the subcutaneous fat layer. This was superficial to the muscular layer. Due to the orientation and location undermining was necessary as well as excision of additional skin in order to reorient the incision into the relaxed skin tension lines. The edges of the wound were undermined and hemostasis was gained with electrocautery. The closure was complex as above as well as including closure of the subcutaneous fat layer with inverted interrupted 5-0 Vicryl suture closure of the deep and superficial subcutaneous layers with inverted interrupted 5-0 Vicryl suture and skin closed with running locking 5-0 Prolene suture. Bacitracin ointment sterile dressing was placed. Attention then turned to the right cheek lesion. This was excised as the left had been including the gross abnormal appearing skin and carried sharply through the skin and subcutaneous tissue to the subcutaneous fat layer was superficial to the muscular layer. Again the incision needed to be oriented into the relaxed skin tension lines as the lesion itself was not required excision of some additional skin. The edges of the wound are undermined and hemostasis gained with electrocautery. Skin was advanced into the wound in order for the closed. The subcutaneous fat layer d eep and superficial subcutaneous layers were closed with inverted interrupted 5- 0 Vicryl suture and skin closed with running locking 5-0 Prolene suture. Bacitracin ointment sterile dressings were placed. The patient allowed to emerge from general anesthesia having tolerated procedure well was extubated in the operating suite and transferred to postop recovery area in satisfactory condition.
[2023-06-10 14:35] VITALS: TEMP 97.8
[2023-06-10 15:12] VITALS: RESP 18
[2023-06-10 15:46] VITALS: BP 179/76; PULSE 93
== END 2023-06-10 15:40 | disposition home or self-care (01) ==
LOC: OR 10:50
PROVIDERS: ATTEND Otolaryngology
DX: L72.0 Epidermal cyst (principal); I10 Essential (primary) hypertension; E78.5 Hyperlipidemia, unspecified; Z79.899 Other long term (current) drug therapy; Z88.6 Allergy status to analgesic agent; Z83.3 Family history of diabetes mellitus
CPT/HCPCS: 11444 ×2; 88305; 13132; J0330; J1100; J0690; J2405; J2001; J3010; J3490; J2704; J2371

== ENCOUNTER → 2023-10-27 | Outpatient (CLI) | payer MEDICARE | END | disposition home or self-care (01) | LOC: LABPRL 08:37 | PROVIDERS: ATTEND Family Medicine | DX: G25.0 Essential tremor (principal); R94.39 Abnormal result of other cardiovascular function study; R03.0 Elevated blood-pressure reading, without diagnosis of hypertension | CPT/HCPCS: 80053; 80061; 83036; 84443; 85025; 86141 ==

== ENCOUNTER → 2024-02-15 | Outpatient (CLI) | payer MEDICARE ==
[2024-02-15 11:20] LABS: INR 1.1 (<1.2); Prothrombin Time 11.4 sec (10.0-12.5)
[2024-02-15 16:16] LABS: Basophils # (A) 0.02 X 10*3/uL (0.00-0.10); Basophils % (A) 0.4 %; Eosinophils # (A) 0.07 X 10*3/uL (0.04-0.35); Eosinophils % (A) 1.3 %; HCT 45.7 % (39.6-50.0); HGB 15.7 g/dL (13.0-17.0); Lymphocytes # (A) 0.99 X 10*3/uL (0.90-5.00); Lymphocytes % (A) 18.4 %; MCH 33.3 pg (27.0-32.0); MCHC 34.4 g/dL (32.0-37.0); MCV 96.8 FL (80.0-97.0); Mean Platelet Volume 10.7 FL (9.5-12.2); Monocytes # (A) 0.49 X 10*3/uL (0.20-1.00); Monocytes % (A) 9.1 %; NRBC Per 100 WBC 0 X 10*3/uL (0.00-0.01); Neutrophils % (A) 70.6 %; Platelet Count 182 X 10*3/uL (140-440); RBC 4.72 X 10*6/uL (4.40-5.60); RDW 11.9 % (11.5-14.5); WBC 5.38 X 10*3/uL (4.50-10.00)
[2024-02-15 16:24] LABS: ALT 22 U/L (10-49); AST 17 U/L (14-35); Albumin 4.2 g/dL (3.8-4.9); Alkaline Phosphatase 101 U/L (41-126); Blood Urea Nitrogen 17.6 mg/dL (9.0-27.0); Calcium 9.2 mg/dL (8.7-10.3); Carbon Dioxide 25.4 mmol/L (21.6-31.8); Chloride 105 mmol/L (96-109); Glucose 117 mg/dL (70-110); Potassium 4.6 mmol/L (3.5-5.5); Sodium 140 mmol/L (135-145); Total Bilirubin 0.5 mg/dL (0.3-1.2); Total Protein 6.2 g/dL (6.2-8.2)
== END | disposition home or self-care (01) ==
LOC: LABPAT 09:06
PROVIDERS: ATTEND Orthopaedic Surgery
DX: Z01.818 Encounter for other preprocedural examination (principal); R94.31 Abnormal electrocardiogram [ECG] [EKG]
CPT/HCPCS: 36415; 80053; 85025; 85610; 85730; 86850; 86900; 86901; 87070; 93005

== ENCOUNTER 2024-02-22 07:13 | Day surgery (SDC) | payer MEDICARE ==
[2024-02-16 13:20] VITALS: BMI 21.9
[~2024-02-22 07:13] MED LIST changes: -HYDROmorphone 0.5 MG/0.5 ML SYRINGE IVP PRN; +TRANEXAMIC 1,000 MG/100ML-NACL 1,000 MG in SALINE 1 100ML.BAG IVPB PRN
[2024-02-22] MEDS: IV FLUID CONTINUATION 1,000 ML IV ONE (08:05)
[2024-02-22] MEDS: MELOXICAM 7.5 MG TAB PO PRN (08:13)
[2024-02-22] MEDS: LACTATED RINGERS 1,000 ML BAG IV STA (08:14)
[2024-02-22] MEDS: GABAPENTIN 300 MG CAP PO PRN (08:14)
[2024-02-22] MEDS: ACETAMINOPHEN TAB 500 MG TAB PO PRN (08:14)
[2024-02-22] MEDS: MIDAZOLAM 2 MG/2 ML VIAL IV STA (08:17)
[2024-02-22] MEDS: DEXAMETHASONE SOD PHOSPHATE 4 MG/ML 1 ML VIAL IVP STA (08:20)
[2024-02-22] MEDS: ONDANSETRON 4 MG/2 ML VIAL IVP STA (08:21)
--- NOTE | 2024-02-22 08:25 | P.ANPRN ---
Procedure Note - Anesthesia - Nerve Block Performed Left Mark Single Time Out Performed: Yes Date of Procedure: 02/22/24 Procedure Start Time: 08:16 Procedure Stop Time: 08:20 Location of Patient: PreOp Indication: Acute Post-Operative Pain, Analgesia, Requested by Surgeon Sedation Type: Sedate with meaningful contact maintained Preparation: Sterile Prep Position: Supine Catheter: None Needle Types: Pajunk Needle Gauge: 21 Ultrasound used to visualize needle placement: Yes Ultrasound used to observe medication spread: Yes Injectate: 0.5% Ropivacaine (see comment for volume) (Ropiv 20ml+Decadron 4mg) Blood Aspirated: No Pain Paresthesia on Injection Noted: No Resistance on Injection: Normal Image Stored and Saved: Yes Events: Uneventful and Well Tolerated
[2024-02-22] MEDS ORDERED: ONDANSETRON 4 MG/2 ML VIAL IVP PRN (08:41)
[2024-02-22] MEDS ORDERED: HYDROmorphone 0.5 MG/0.5 ML SYRINGE IVP PRN ×3 (08:41)
[2024-02-22] MEDS ORDERED: NALOXONE 0.4 MG/ML 1 ML VIAL IV PRN (08:41)
[2024-02-22] MEDS ORDERED: MAGNESIUM HYDROXIDE 2,400 MG/30 ML CUP PO PRN (08:41)
[2024-02-22] MEDS ORDERED: HYDROcodone/APAP 7.5-325MG 1 EACH TAB PO PRN (08:43)
[2024-02-22] MEDS: ceFAZolin 1,000 MG in SODIUM CHLORIDE 0.9% 1,000 ML IRRIGATION ONE (08:54)
[2024-02-22] MEDS: ROPIVACAINE 5 MG/ML 30 ML VIAL MISCELLANE ONE ×2 (09:24→09:58)
--- NOTE | 2024-02-22 10:03 | P.OP ---
Date of Procedure: 02/22/24 Preoperative Diagnosis: Severe osteoarthritis left hip Postoperative Diagnosis: Severe osteoarthritis left hip Procedure(s) Performed: Left total hip arthroplasty with a direct anterior approach Implants: [employer] Polarstem standard size 2 with a collar [employer] R3, 3 hole hemispherical acetabular shell, 52 mm [employer] Reflection 6.5 mm cancellus screws, 20 mm, 25 mm [employer] R3, XLPE 20 acetabular liner [employer] Oxinium femoral head 36 mm, +0 All components were press-fit. The articulation is Oxinium on polyethylene. Anesthesia: spinal Surgeon: Albert Richardson Jukebox Route Driver #1: Sheri Sanders Estimated Blood Loss (ml): 150 Pathology: none sent Condition: stable Disposition: PACU Indications for Procedure: After failure of conservative treatment we discussed the surgical and non surgical treatment options at length. Patient wishes to proceed with a total hip arthroplasty with a direct anterior approach. Complications specific to this procedure were discussed at length, including but not limited to infection, leg length discrepancy, dislocation, nerve injury, and fracture. Covid-19 was also discussed at length with the patient, and they are aware of the current policies and procedures. The patient was given the option of delaying surgery, but they elect to proceed knowing these risks. Patient is aware of all these complications and informed consent was obtained Operative Findings: The operative findings are consistent with severe osteoarthritis of the left hip Description of Procedure: The patient was seen and evaluated in the preoperative area and the consent was reviewed. The operative site was marked with a skin marker. The patient verified the procedure and operative site. A KELI block was placed by anesthesia in the preoperative area. The patient was then brought to the operating room and given preoperative antibiotics intravenously. 1 g of Tranexamic acid was also given intravenously. A spinal anesthetic was administered by the anesthesia department. The patient was then placed on the Bruno table with the bony prominences well-padded. The hip area was then prepped with a ChloraPrep solution and draped in the usual sterile fashion. A universal timeout was then performed, which confirmed the patient's name, surgical site, ALLERGIES, and procedure being performed on the consent. Next the incision site was located at 1 cm distal and 4 cm lateral to the anterior superior iliac spine. The skin and subcutaneous tissues were sharply incised. Incision was carefully dissected down to the fascia overlying the tensor fascia erlin muscle. This fascia was then incised in line with the muscle fibers. Care was taken to stay laterally in order to avoid injuring the lateral femoral cutaneous nerve. Next, using blunt finger dissection, the tensor fascia erlin muscle was dissected off its investing fascia. The muscle was then carefully retracted laterally with a cobra retractor over the lateral neck of the femur. Next, the circumflex vessels were identified and cauterized using the Aquamantis device. The anterior hip capsule was then exposed. The capsule was then opened and an inverted T fashion. The retractors were then placed intracapsularly. The retractors were maintained intracapsular throughout the procedure. The proximal femur was then visualized. Fluoroscopic x-rays were then taken in order to evaluate the preoperative leg lengths. A small amount of traction was placed on the leg. The femoral neck was then osteotomized at the appropriate level above the lesser trochanter. A small wedge of bone was then removed from the remaining femoral head. Next, using a corkscrew the femoral head was removed from the acetabulum. On gross visual inspection, the femoral head had complete loss of articular cartilage and multiple periarticular osteophytes. The femoral head was then measured. Attention was then turned to the acetabulum. The acetabulum was exposed and any remaining labrum was excised. Sequential reaming of the acetabulum was performed using fluoroscopic guidance until there was a good bed of bleeding cancellus bone. When the appropriate size was reached, a trial was then placed. The position and fit of the trial was checked with fluoroscopy. The trial was then removed. Then, using fluoroscopic guidance, the final implant was impacted at 20 of anteversion and 40 of abduction, and fully seated in the acetabulum. 2 screws were then placed in the acetabulum. Again fluoroscopy was used to check position of the screws. Next, the liner was then impacted, with a 20 elevated liner located in the anterior superior quadrant. Component locking was confirmed. Attention was then directed to the femur. With the aid of the Bruno table, the femur was externally rotated to approximately 130, extended, and adducted under the opposite leg. A side hook was then placed under the proximal femur, and the side hook elevator was used to elevate the proximal femur while releasing the capsule. Retractors were then placed. A capsular release was performed, as well as a release of the conjoined tendon, which afforded excellent visualization of the proximal femur. Next, a box osteotome was used to lateralize the proximal femur. A material handling technician was then used to locate the femoral canal. Sequential broaching was then performed with appropriate size which afforded excellent fixation in the proximal femur. A trial was then placed with appropriate head and neck, and the hip was gently reduced with the aid of the Bruno table. Fluoroscopy was then used to check position of the components, as well as to evaluate the leg lengths and offset. The leg lengths and offset were measured as closely as possible to ensure stability of the hip. The hip was then gently dislocated and the trials were then removed. Final implants were then impacted and the hip was again reduced. Final fluoroscopic x-rays confirmed that the components were in anatomic position. The leg lengths and offset were measured and were found to coincide with the trial measurements. The hip was also taken through range of motion, and found to be stable. The hip was then copiously irrigated with antibiotic solution with pulsatile lavage. The hip was then irrigated with Irrisept solution. The soft tissues were then injected with a ropivacaine solution. A second dose of 1 g of Tranexamic acid was also given intravenously. The fascia was then closed with 2-0 strata fix suture. The subcutaneous tissue was closed with 3-0 Vicryl. The subcuticular tissue was closed with 3-0 moncryl suture. The skin was then closed with Exofin skin glue. After the glue and dried, and Optifoam silver impregnated dressing was applied. The patient was then transferred to the recovery room in stable condition. The administrative library assistant DIANA Hutton was required due to the complexity of surgery, and the need for skilled legal executive assistant for positioning, draping, exposure, retraction, and closure of the wound.
[2024-02-22] MEDS: LACTATED RINGERS 1,000 ML IV ONE (10:18)
--- NOTE | 2024-02-22 10:20 | XR ---
Intraoperative/procedural fluoroscopic services were provided for left total hip arthroplasty. Total fluoroscopy time is 24 seconds with a total of 5 submitted images to PACS. Total DAP 0.9234 Gycm2. P lucila see the operative note for further details. [facility], , 02/22/2024 10:18 AM
--- NOTE | 2024-02-22 10:56 | XR ---
EXAMINATION TYPE: XR Hip Limited LT DATE OF EXAM: 02/22/2024 10:47 AM INDICATION: Patient age:Male; 78 years old; Reason for study: Status post hip surgery, assess surgical alignment; PHH. COMPARISON: Left hip fluoroscopic images 02/22/2024, left hip radiograph 06/03/2021 TECHNIQUE: The left hip was examined in the single frontal projection. FINDINGS: Postsurgical changes from total left hip arthroplasty with surrounding fluid and gas. Hardw are appears intact with appropriate alignment on the single view. No acute fracture or dislocation. D egenerative disease of the visualized lower lumbar spine. Vasectomy clips identified. IMPRESSION: Postsurgical changes from total left arthroplasty. Hardware appears intact with appropriate alignment . [facility], , 02/22/2024 10:54 AM
[2024-02-22] MEDS: SODIUM CHLORIDE 0.9% 1,000 ML IV SCH (15:38)
[2024-02-22] MEDS: HYDROcodone/APAP 7.5-325MG 1 EACH TAB PO PRN (20:53)
[2024-02-22] MEDS: PRIMIDONE 250 MG TAB PO SCH (20:53)
[2024-02-22] MEDS: ASPIRIN 325 MG TAB PO SCH (20:53)
[2024-02-22] MEDS: TAMSULOSIN 0.4 MG CAP.ER.24H PO SCH (20:53)
[2024-02-22] MEDS: DOXAZOSIN 2 MG TAB PO SCH (20:53)
[2024-02-22] MEDS: busPIRone HCl 10 MG TAB PO SCH (20:53)
[2024-02-22] MEDS: SENNOSIDES-DOCUSATE SODIUM 1 EACH TAB PO SCH (20:53)
[2024-02-22] MEDS: ATORVASTATIN 20 MG TAB PO SCH (20:53)
[2024-02-23 02:46] VITALS: RESP 14; TEMP 98.2
[2024-02-23] MEDS: buPROPion XL 300 MG TAB.ER.24H PO SCH (07:46)
[2024-02-23 08:33] LABS: Basophils # (A) 0.01 X 10*3/uL (0.00-0.10); Basophils % (A) 0.2 %; Eosinophils # (A) 0.05 X 10*3/uL (0.04-0.35); Eosinophils % (A) 0.8 %; HCT 34.6 % (39.6-50.0); HGB 12.2 g/dL (13.0-17.0); Lymphocytes # (A) 1.25 X 10*3/uL (0.90-5.00); Lymphocytes % (A) 19.5 %; MCH 33.2 pg (27.0-32.0); MCHC 35.3 g/dL (32.0-37.0); MCV 94.3 FL (80.0-97.0); Mean Platelet Volume 11.2 FL (9.5-12.2); Monocytes # (A) 0.69 X 10*3/uL (0.20-1.00); Monocytes % (A) 10.8 %; NRBC Per 100 WBC 0 X 10*3/uL (0.00-0.01); Neutrophils # (A) 4.38 X 10*3/uL (1.80-7.70); Neutrophils % (A) 68.2 %; Platelet Count 119 X 10*3/uL (140-440); RBC 3.67 X 10*6/uL (4.40-5.60); RDW 11.9 % (11.5-14.5); WBC 6.41 X 10*3/uL (4.50-10.00)
[2024-02-23 08:35] VITALS: BP 148/72; PULSE 85
[2024-02-23 08:36] LABS: ALT 20 U/L (10-49); AST 20 U/L (14-35); Albumin 3.2 g/dL (3.8-4.9); Albumin/Globulin Ratio 2.13 Ratio (1.60-3.17); Alkaline Phosphatase 76 U/L (41-126); BUN/Creat Ratio 17.11 Ratio (12.00-20.00); Blood Urea Nitrogen 15.4 mg/dL (9.0-27.0); Calcium 8.2 mg/dL (8.7-10.3); Carbon Dioxide 24.8 mmol/L (21.6-31.8); Chloride 107 mmol/L (96-109); Globulin 1.5 g/dL (1.6-3.3); Glucose 114 mg/dL (70-110); Sodium 139 mmol/L (135-145); Total Bilirubin 0.4 mg/dL (0.3-1.2); Total Protein 4.7 g/dL (6.2-8.2)
[2024-02-23] MEDS: ACETAMINOPHEN TAB 325 MG TAB PO PRN (08:47)
--- NOTE | 2024-02-23 09:05 | P.DS ---
Providers Expected date of discharge: 02/23/24 Attending physician: Albert Richardson Consults: 02/22/24 08:41 Consult Physician Routine Consulting Provider: Jamal Davila Consult Reason/Comments: medical management Do you want consulting provider notified?: Yes Primary care physician: Neelima Maciel - Discharge Diagnosis(es) (1) Osteoarthritis of left hip Current Visit: Yes Status: Acute (2) S/P total hip arthroplasty Current Visit: Yes Status: Acute Hospital Course: This is a 78-year-old male with known history of degenerative arthritis of the left hip. The patient presented for evaluation as an outpatient. After discussion and consideration patient elects to proceed with total hip arthroplasty. The patient is seen preoperatively by Dr. Richardson and medically cleared for surgery by their primary care physician. Patient is admitted to [facility] on 02/22/2024 for total hip arthroplasty. The procedure is performed without complication or sequelae. The patient is doing well postoperatively. Labs and vital signs are stable on day of discharge. On day of discharge patient's hip incision is healing well. There is minimal erythema. There is no drainage noted at this time. There is minimal soft tissue swelling to the hip and thigh. Patient has full foot and ankle motion without difficulty or pain. Calf is soft and nontender to palpation. Neurovascular status to the left lower extremity is intact. Patient is discharged home in good condition. Please see med rec for accurate list of home medications. Plan - Discharge Summary Discharge Rx Participant: No New Discharge Prescriptions: New Aspirin 325 mg PO BID #60 tab HYDROcodone/APAP 7.5-325MG [Pryor 7.5-325] 1 - 2 tab PO Q6H PRN #32 tab PRN Reason: Pain Sennosides [Senokot] 2 tab PO DAILY PRN #60 tablet PRN Reason: Constipation No Action Atorvastatin Calcium [Lipitor] 20 mg PO HS Tamsulosin [Flomax] 0.8 mg PO HS buPROPion XL [Wellbutrin XL] 300 mg PO QAM Primidone [Mysoline] 250 mg PO HS Acetaminophen [Tylenol] 650 mg PO DIRECTED PRN PRN Reason: Pain busPIRone HCL [Buspirone HCl] 30 mg PO HS Doxazosin [Cardura] 2 mg PO HS Discharge Medication List Atorvastatin Calcium [Lipitor] 20 mg PO HS 08/26/21 [History] Tamsulosin [Flomax] 0.8 mg PO HS 08/26/21 [History] Acetaminophen [Tylenol] 650 mg PO DIRECTED PRN 02/16/24 [History] Doxazosin [Cardura] 2 mg PO HS 02/16/24 [History] Primidone [Mysoline] 250 mg PO HS 02/16/24 [History] buPROPion XL [Wellbutrin XL] 300 mg PO QAM 02/16/24 [History] busPIRone HCL [Buspirone HCl] 30 mg PO HS 02/16/24 [History] Aspirin 325 mg PO BID #60 tab 02/22/24 [Rx] HYDROcodone/APAP 7.5-325MG [Pryor 7.5-325] 1 - 2 tab PO Q6H PRN #32 tab 02/22/24 [Rx] Sennosides [Senokot] 2 tab PO DAILY PRN #60 tablet 02/22/24 [Rx] Follow up Appointment(s)/Referral(s): Albert Richardson DO [Doctor of Osteopathic Medicine] - 2 Weeks Activity/Diet/Wound Care/Special Instructions: Weightbearing as tolerated with walker. Leave dressing intact. Dressing may be removed by home care nurse or by patient in 7 days. Then change dressing twice daily until follow up. May shower with initial dressing intact and after removal. If dressing become saturated, please remove. Please take aspirin 325mg twice daily for 30 days to prevent blood clots. Recommend use of compression stockings daily until follow up to help prevent swelling and blood clots. May remove at night before sleeping. [facility] with [facility] 2 weeks and call with any questions or concerns, . Discharge Disposition: HOME SELF-CARE
--- NOTE | 2024-02-23 09:08 | P.CONS ---
History of Present Illness - Reason for Consult Consult date: 02/22/24 - History of Present Illness Santi Irizarry is a 78-year-old male patient of Dr. Castillo who presented for an elective of left hip arthroplasty with Dr. Richardson on 02/22/2024. Patient has a past medical history of hearing disorder, hyperlipidemia, prostate disorder, BPH, essential tremors, anxiety and osteoarthritis with failed conservative management. Patient denies history of blood clots. Patient denies smoking. C urrent vital signs temp 98.1, heart rate 87, respiratory rate 17, blood pressure 152/72 with a pulse ox of 96% on room air. Patient denies chest pain or shortness of breath. Patient denies nausea vomiting or diarrhea. Patient denies any urinary burning or frequency. Patient has been started on aspirin as prophylaxis DVT prevention per orthopedic services. A.m. labs have been ordered Review of Systems Please refer to HPI otherwise unremarkable Past Medical History Past Medical History: Hearing Disorder / Deafness, Hyperlipidemia, Osteoarthritis (OA), Prostate Disorder Additional Past Medical History / Comment(s): Essential tremors, BPH, bilateral hearing aid use. History of Any Multi-Drug Resistant Organisms: None Reported Past Surgical History: Orthopedic Surgery Additional Past Surgical History / Comment(s): Right rotator cuff repair, right knee drained, cataract surgery, colonoscopy. Past Anesthesia/Blood Transfusion Reactions: No Reported Reaction, Motion Sickness Additional Past Anesthesia/Blood Transfusion Reaction / Comm: Motion sickness as child. Smoking Status: Never smoker - Past Family History mother History Unknown: Yes Family Medical History: Diabetes Mellitus Medications and Allergies Home Medications Medication Instructions Recorded Confirmed Type Atorvastatin Calcium [Lipitor] 20 mg PO HS 08/26/21 02/22/24 History Tamsulosin [Flomax] 0.8 mg PO HS 08/26/21 02/22/24 History Acetaminophen [Tylenol] 650 mg PO DIRECTED PRN 02/16/24 02/22/24 History Doxazosin [Cardura] 2 mg PO HS 02/16/24 02/22/24 History Primidone [Mysoline] 250 mg PO HS 02/16/24 02/22/24 History buPROPion XL [Wellbutrin XL] 300 mg PO QAM 02/16/24 02/22/24 History busPIRone HCL [Buspirone HCl] 30 mg PO HS 02/16/24 02/22/24 History Aspirin 325 mg PO BID #60 tab 02/22/24 Rx HYDROcodone/APAP 7.5-325MG [Hornick 1 - 2 tab PO Q6H PRN #32 tab 02/22/24 Rx 7.5-325] Sennosides [Senokot] 2 tab PO DAILY PRN #60 tablet 02/22/24 Rx Allergies Allergy/AdvReac Type Severity Reaction Status Date / Time No Known Allergies Allergy Verified 02/22/24 07:45 Physical Exam Vitals: Vital Signs Temp Pulse Resp BP Pulse Ox 02/22/24 14:58 71 16 179/73 99 02/22/24 13:59 76 16 166/76 100 02/22/24 13:00 78 16 175/65 99 02/22/24 12:28 83 16 175/76 99 02/22/24 12:00 69 16 148/74 98 02/22/24 11:30 69 16 132/72 97 02/22/24 11:15 71 17 134/76 97 02/22/24 11:05 66 16 130/65 95 02/22/24 10:50 76 16 108/54 96 02/22/24 10:35 63 16 102/52 99 02/22/24 10:20 98 F 67 20 111/59 98 02/22/24 08:26 77 16 135/63 96 02/22/24 07:45 97.2 F L 80 18 155/78 96 Intake and Output 02/22/24 02/22/24 02/22/24 06:59 14:59 22:59 Intake Total 1551 Output Total 150 Balance 1401 Intake: IV 1551 Output: Estimated Blood Loss 150 Other: Weight 64.9 kg Head normocephalic Neck supple Lungs clear to auscultation bilaterally no wheezing or crackles Heart regular rate and rhythm S1-S2, no rub or gallop Abdomen is soft nontender nondistended positive bowel sounds no hepatosplenomegaly Extremities no edema. Left hip dressing clean dry and intact Neuro alert and orientated to 3 Results CBC & Chem 7: 02/23/24 03:08 02/23/24 03:08 Assessment and Plan Assessment: 1. Osteoarthritis to the left hip status post surgical repair on 02/22/2024 2. History of deafness 3. History of BPH 4. History of hyperlipidemia 5. History of anxiety Thank you for this consultation we will continue to follow patient closely throughout stay Time with Patient: Greater than 30 (Greater than 60% of the total time spent in counseling and coordination of care)
--- NOTE | 2024-02-23 09:10 | P.PN ---
Subjective Progress Note Date: 02/23/24 Santi Irizarry, is a 78-year-old male patient of Dr. Castillo who presented for an elective of left hip arthroplasty with Dr. Richardson on 02/22/2024. Patient has a past medical history of hearing disorder, hyperlipidemia, prostate disorder, BPH, essential tremors, anxiety and osteoarthritis with failed conservative management. Patient denies history of blood clots. Patient denies smoking. Current vital signs temp 98.1, heart rate 87, respiratory rate 17, blood pressure 152/72 with a pulse ox of 96% on room air. Patient denies chest pain or shortness of breath. Patient denies nausea vomiting or diarrhea. Patient denies any urinary burning or frequency. Patient has been started on aspirin as prophylaxis DVT prevention per orthopedic services. A.m. labs have been ordered On 02/23/2024 patient is alert and oriented x 3. Patient has been up ambulating through the halls. Patient denies chest pain or shortness of breath. Patient denies nausea vomiting or diarrhea. Patient denies any urinary burning or frequency. Current vital signs temp 98.2, heart rate 85, respiratory rate 14, blood pressure 148/72 with a pulse ox of 97% on room air. Lab work revealing white blood cell 6.41, hemoglobin 12.2, creatinine 0.9 and bun 15.4. Patient anticipating discharge home today. Objective - Vital Signs Vital signs: Vital Signs Temp 98.2 F 02/23/24 07:05 Pulse 85 02/23/24 07:05 Resp 14 02/23/24 07:05 BP 148/72 02/23/24 07:05 Pulse Ox 97 02/23/24 07:05 FiO2 Intake & Output 02/22/24 02/23/24 02/23/24 18:59 06:59 18:59 Intake Total 1731 830 Output Total 150 Balance 1581 830 Weight 64.9 kg Intake: IV 1551 Intake, IV Titration 830 Amount Sodium Chloride 0.9% 1, 780 000 ml @ 65 mls/hr IV . [id number] JACQUI Rx#:[id number] ceFAZolin 2 gm In Sodium 50 Chloride 0.9% 50 ml @ 100 mls/hr IVPB Q8H JACQUI Rx#: [id number] Oral 180 Output: Estimated Blood Loss 150 Other: Voiding Method Toilet # Voids 3 - Labs CBC & Chem 7: 02/23/24 03:08 02/23/24 03:08 Labs: Abnormal Lab Results - Last 24 Hours (Table) 02/23/24 02/23/24 Range/Units 03:08 03:08 RBC 3.67 L (4.40-5.60) X 10*6/uL Hgb 12.2 L (13.0-17.0) g/dL Hct 34.6 L (39.6-50.0) % MCH 33.2 H (27.0-32.0) pg Plt Count 119 L (140-440) X 10*3/uL Glucose 114 H (70-110) mg/dL Calcium 8.2 L (8.7-10.3) mg/dL Total Protein 4.7 L (6.2-8.2) g/dL Albumin 3.2 L (3.8-4.9) g/dL Globulin 1.5 L (1.6-3.3) g/dL Assessment and Plan Assessment: 1. Osteoarthritis to the left hip status post surgical repair on 02/22/2024 2. History of deafness 3. History of BPH 4. History of hyperlipidemia 5. History of anxiety Thank you for this consultation we will continue to follow patient closely throughout stay
== END 2024-02-23 11:15 | disposition home or self-care (01) ==
LOC: OR 07:13 → 4SSUR 10:17 → OR 02-23 11:15
PROVIDERS: ATTEND Orthopaedic Surgery
DX: M16.12 Unilateral primary osteoarthritis, left hip (principal); M17.12 Unilateral primary osteoarthritis, left knee
CPT/HCPCS: 73501; 27130; J2250; J1100; J0690 ×2; J2405; J2795; 64999; 80053; 85025

== ENCOUNTER 2024-03-12 19:49 | Emergency (ER) | payer MEDICARE ==
[2024-03-12 19:53] LABS: Glucose,Whole Blood 153 mg/dL (70-110)
[2024-03-12 20:12] LABS: Basophils % (A) 0 %; Eosinophils # (A) 0.1 k/uL (0-0.7); Eosinophils % (A) 2 %; HGB 13.8 gm/dL (13.0-17.5); Lymphocytes # (A) 1.8 k/uL (1.0-4.8); Lymphocytes % (A) 32 %; MCH 31.9 pg (25.0-35.0); MCHC 32.8 g/dL (31.0-37.0); MCV 97.2 fL (80.0-100.0); Mean Platelet Volume 7.8; Monocytes # (A) 0.3 k/uL (0-1.0); Monocytes % (A) 5 %; Neutrophils # (A) 3.3 k/uL (1.3-7.7); Neutrophils % (A) 58 %; Platelet Count 191 k/uL (150-450); RBC 4.32 m/uL (4.30-5.90); RDW 12.3 % (11.5-15.5); WBC 5.7 k/uL (3.8-10.6)
--- NOTE | 2024-03-12 20:13 | CT ---
EXAMINATION TYPE: CODE STROKE: CT brain wo contr DATE OF EXAM: 03/12/2024 8:08 PM COMPARISON: None available.. CLINICAL INDICATION: Male, 78 years old with history of Neuro deficit, acute, stroke suspected, CVA TECHNIQUE: Brain: Axial CT images of the brain were obtained with coronal and sagittal reformats created and rev iewed. Contrast used: None. Oral contrast used: None. CT DLP: 1319.8 mGycm, Automated exposure control for dose reduction was used. FINDINGS: Brain: No acute intracranial hemorrhage, midline shift or significant mass effect. Ventricles and sulci are prominent compatible with generalized cerebral volume loss. Patchy periventricular and subcortical wh ite matter hypoattenuation likely reflecting chronic microvessel ischemic disease. Basal cisterns erica ear patent. No sizable extra-axial fluid collection. Paranasal sinuses and mastoid air cells appear p atent. Previous bilateral cataract lens extraction noted. No large scalp hematoma or depressed calvar ial fracture. IMPRESSION: No acute intracranial hemorrhage, midline shift or significant mass effect. [facility], , 03/12/2024 8:11 PM
--- NOTE | 2024-03-12 20:17 | ED ---
General Adult HPI - General Stated complaint: Neuro Time Seen by Provider: 03/12/24 19:50 - History of Present Illness Initial comments: Patient is a 78-year-old man past medical history of hyperlipidemia, recent left hip arthroplasty presenting today for aphasia. Hx limited by patient's aphasia. was called and provided history. At 645 this evening she turned to her and asked him if he is ready to take his medications. He was only able to grunt in response. He was unable to speak so she called 911. Patient is not on blood thinners though on chart review does show that he was prescribed 325 mg aspirin daily when discharged approximately 2 weeks ago. Patient has no history of prior CVA or CAD however his mother and sister did have strokes. The patient currently shakes his head "no" when asked about pain. He is currently COVID- positive - Related Data Home Medications Medication Instructions Recorded Confirmed Atorvastatin Calcium [Lipitor] 20 mg PO HS 08/26/21 02/22/24 Tamsulosin [Flomax] 0.8 mg PO HS 08/26/21 02/22/24 Acetaminophen [Tylenol] 650 mg PO DIRECTED PRN 02/16/24 02/22/24 Doxazosin [Cardura] 2 mg PO HS 02/16/24 02/22/24 Primidone [Mysoline] 250 mg PO HS 02/16/24 02/22/24 buPROPion XL [Wellbutrin XL] 300 mg PO QAM 02/16/24 02/22/24 busPIRone HCL 30 mg PO HS 02/16/24 02/22/24 Previous Rx's Medication Instructions Recorded Aspirin 325 mg PO BID #60 tab 02/22/24 HYDROcodone/APAP 7.5-325MG [Weir 1 - 2 tab PO Q6H PRN #32 tab 02/22/24 7.5-325] Sennosides [Senokot] 2 tab PO DAILY PRN #60 tablet 02/22/24 Allergies Allergy/AdvReac Type Severity Reaction Status Date / Time No Known Allergies Allergy Verified 02/22/24 07:45 Review of Systems ROS Statement: Those systems with pertinent positive or pertinent negative responses have been documented in the HPI. ROS Other: All systems not noted in ROS Statement are negative. Limitations: ROS unobtainable due to patients medical condition Past Medical History Past Medical History: Hyperlipidemia, Osteoarthritis (OA) Additional Past Medical History / Comment(s): arthritis lower back and hips - had stem cell tx for pain control, essential tremors, BPH History of Any Multi-Drug Resistant Organisms: None Reported Past Surgical History: Orthopedic Surgery Additional Past Surgical History / Comment(s): rt rotator cuff repair. rt knee drained. cataract surgery. colonoscopy Past Anesthesia/Blood Transfusion Reactions: No Reported Reaction Smoking Status: Never smoker - Past Family History mother History Unknown: Yes Family Medical History: Diabetes Mellitus General Exam - General Exam Comments Initial Comments: PE: CONSTITUTIONAL: [no apparent distress, well appearing sitting comfortably SKIN: Warm, dry, no jaundice, hives or petechiae EYES: Pupils are equally round, extraocular movements intact without nystagmus, clear conjunctiva, non-icteric sclera HENT: Normocephalic, atraumatic, moist mucus membranes, oropharynx clear without exudates NECK: , Full range of motion, normal appearance PULMONARY: Clear to auscultation without wheezes, rhonchi, or rales, normal excursion, no accessory muscle use and no stridor CARDIOVASCULAR: Regular rate, rhythm, normal S1 and S2. No appreciated murmurs, rubs or gallops. Strong radial pulses with intact distal perfusion. No lower extremity edema GASTROINTESTINAL: Soft, active bowel sounds throughout, non-tender, non- distended, no palpable masses, no rebound or guarding. No hepatosplenomegaly MUSCULOSKELETAL: Extremities have no gross deformity, no edema, redness, or swelling. NEUROLOGIC: Exam limited as patient completely aphasic UNable to assess orientation, patient completely aphasic, though awake, alert, following commands; cranial nerves: II unable to assess as patient aphasic though tracks my hand through all quadrants of the room (after aphasia improved, patient was able to complete visual field exam, visual gilliland intact bilaterally), III, IV and (extraocular movements are intact, pupils are equal with normal reaction to light), V (normal jaw opening), VII (no facial droop), IX and X (normal palate movement, midline uvula, however completely aphasic ), XI (symmetrical shoulder shrug and lateral head rotation against resistance), XII (midline tongue protrusion). Motor strength is 5/5 in all extremities. No abnormal movements. Normal muscle tone. Sensation to light touch is intact bilaterally. No cerebellar signs ([id number]) Moves all extremities x 4 without motor or sensory deficit PSYCHIATRIC:calm and cooperative, otherwise unable to assess Course Vital Signs 03/12/24 03/12/24 03/12/24 19:53 20:15 20:30 Temperature 97.6 F 97.7 F 97.6 F Pulse Rate 87 72 80 Respiratory 17 20 17 Rate Blood Pressure 138/58 157/59 160/59 O2 Sat by Pulse 97 98 96 Oximetry 03/12/24 03/12/24 03/12/24 20:45 21:00 21:15 Temperature 97.2 F L 97.2 F L 97.2 F L Pulse Rate 71 82 80 Respiratory 15 16 16 Rate Blood Pressure 152/62 158/72 150/70 O2 Sat by Pulse 97 97 98 Oximetry 03/12/24 03/12/24 03/12/24 21:30 21:45 22:00 Temperature 97.6 F 97.8 F 97.8 F Pulse Rate 76 72 77 Respiratory 18 16 18 Rate Blood Pressure 148/52 150/57 147/60 O2 Sat by Pulse 97 98 98 Oximetry 03/12/24 22:30 Temperature 97.8 F Pulse Rate 77 Respiratory 17 Rate Blood Pressure 147/63 O2 Sat by Pulse 98 Oximetry EKG Findings - EKG Comments: EKG Findings:: Sinus rhythm rate 96 bpm, MN interval 150 ms, QRS duration 105 ms, QT/QTc 339/392 ms, normal axis, enlarged T waves in lead V3 and V4, T wave inversion V1, no clear ST elevations or depressions compared to EKG performed on 02/15/2024, T waves are flattened in V1 and V2 in comparison to previous EKG, T waves are more enlarged and leads V3, otherwise no significant changes from prior Medical Decision Making - Medical Decision Making Was pt. sent in by a medical professional or institution (, PA, [employer]OMOTIVE [employer], urgent care, hospital, or residential...) When possible be specific @ -No Did you speak to anyone other than the patient for history (EMS, parent, family, police, friend...)? What history was obtained from this source @ -I spoke with EMS and patient's regarding history, states symptoms started 645 this evening Did you review nursing and triage notes (agree or disagree)? Why? @ -I reviewed and agree with nursing and triage notes Were old charts reviewed (outside hosp., previous admission, EMS record, old EKG, old radiological studies, urgent care reports/EKG's, residential records)? Report findings @ -Medical records reviewed, patient was here on 02/22/2024 and discharged on 02/23/2024 after left hip arthroplasty discharged on aspirin 325 mg no other blood thinners and discharge paperwork Differential Diagnosis (chest pain, altered mental status, abdominal pain women, abdominal pain men, vaginal bleeding, weakness, fever, dyspnea, syncope, headache, dizziness, GI bleed, back pain, seizure, CVA, palpatations, mental health, musculoskeletal)? @ -Differential CVA Ischemic stroke, hemorrhagic stroke, brain tumor, atypical migraine, Wernicke's encephalopathy, seizure, multiple sclerosis, meningitis, encephalitis, hypoglycemia, Guillain-Ocampo, electrolytes disturbance, myasthenia gravis.... This is not meant to be an all-inclusive list EKG interpreted by me (3pts min.). @ -As above X-rays interpreted by me (1pt min.). @No cardiomegaly, consolidations or pleural effusions CT interpreted by me (1pt min.). @ -CT brain shows no hemorrhage or mass effect, CTA shows no large vessel occlus ion or dissection U/S interpreted by me (1pt. min.). @ -None done What testing was considered but not performed or refused? (CT, X-rays, U/S, labs)? Why? @ -None What meds were considered but not given or refused? Why? @ -None Did you discuss the management of the patient with other professionals (p davidfessionalaleida i.e. , PA, LOCOMOTIVE ENGINEER [employer], lab, RT, psych nurse, marriage and family social worker, pediatric oncologist, teacher, uniform patrol police officer, medical case manager)? Give summary @This case was discussed with Dr. Del Rosario, neurology Sherryquynh Ellsworth, recommended tNK administration both at initial presentation and when called back regarding improving symptoms, with NIH 3, tNK still indicated Was smoking cessation discussed for >3mins.? @ -No Was critical care preformed (if so, how long)? @Yes, 45 minutes Were there social determinants of health that impacted care today? How? (Homelessness, low income, unemployed, alcoholism, drug addiction, tr ansportation, low edu. Level, literacy, decrease access to med. care, intermediate, rehab)? @ -No Was there de-escalation of care discussed even if they declined (Discuss DNR or withdrawal of care, Hospice)? @ -No What co-morbidities impacted this encounter? (DM, HTN, Smoking, COPD, CAD, Cancer, CVA, ARF, Chemo, Hep., AIDS, mental health diagnosis, sleep apnea, morbid obesity)? @ -Hyperlipidemia Was patient admitted / discharged? Hospital course, mention meds given and route, prescriptions, significant lab abnormalities, going to OR and other pertinent info. @Transferred to [facility] Patient is a 78-year-old gentleman presenting today for complete aphasia starting at 645 this evening. Currently COVID+ Not on thinners, family history CVA in his mother and sister. Was on 325 mg aspirin. Patient is seen and assessed on presentation. NIH 7 for complete aphasia. Exam and history is limited by patient's aphasia. Code TNK was called and patient was transported to CT scanner. Discussed case with Dr. Ga [facility] neurology who recommends TN K. I obtained consent from patient's Tete over the phone, and we discussed risks and benefits of tNK administration. Maritza consented to administration for patient as he is currently aphasic. Reviewed CT brain, showed no evidence of hemorrhage. On reassessment prior to initiation of TNK patient was able to answer one-word questions such as his name and say the word "no". However he did still have an NIH of 3, discussed with Dr. Reji Lazaro again and continue to recommend TNK. Blood pressure was controlled, TNK was admi nistered. On reassessment symptoms improving, patient now able to speak short sentences and identify all objects presented to him. Labs and imaging reviewed. Grossly within normal limits. Abnormal values not concerning for acute pathology related to presenting complaint. CTA negative for occlusion, CT brain negative for hemorrhage. Did discuss with Dr. Davila for admission however we do not have neurology at this facility until Thursday so patient will need to be transferred to [facility]. Discussed plan for transfer, as well as risks and benefits of transfer with patient and and ul timately they were agreeable. Patient accepted for transfer by Dr. Del Rosario, [facility] neurology, patient transferred in stable condition. Undiagnosed new problem with uncertain prognosis? @ -No Drug Therapy requiring intensive monitoring for toxicity (Heparin, Nitro, Insulin, Cardizem)? @ -No Were any procedures done? @ -No Diagnosis/symptom? @ -Aphasia, CVA Acute, or Chronic, or Acute on Chronic? @Acute Uncomplicated (without systemic symptoms) or Complicated (systemic symptoms)? @Complicated Side effects of treatment? @ -No Exacerbation, Progression, or Severe Exacerbation? @ -No Poses a threat to life or bodily function? How? (Chest pain, USA, DE, pneumonia, PE, COPD, DKA, ARF, appy, cholecystitis, CVA, Diverticulitis, Homicidal, Suicidal, threat to staff... and all critical care pts) Yes - Lab Data Result diagrams: 03/12/24 20:01 03/12/24 20:01 Lab Results 03/12/24 03/12/24 03/12/24 Range/Units 19:51 20:01 20:01 WBC 5.7 (3.8-10.6) k/uL RBC 4.32 (4.30-5.90) m/uL Hgb 13.8 (13.0-17.5) gm/dL Hct 42.0 (39.0-53.0) % MCV 97.2 (80.0-100.0) fL MCH 31.9 (25.0-35.0) pg MCHC 32.8 (31.0-37.0) g/dL RDW 12.3 (11.5-15.5) % Plt Count 191 (150-450) k/uL MPV 7.8 Neutrophils % 58 % Lymphocytes % 32 % Monocytes % 5 % Eosinophils % 2 % Basophils % 0 % Neutrophils # 3.3 (1.3-7.7) k/uL Lymphocytes # 1.8 (1.0-4.8) k/uL Monocytes # 0.3 (0-1.0) k/uL Eosinophils # 0.1 (0-0.7) k/uL Basophils # 0.0 (0-0.2) k/uL PT 11.5 (10.0-12.5) sec INR 1.0 (<1.2) APTT 40.7 H (22.0-30.0) sec Sodium (137-145) mmol/L Potassium (3.5-5.1) mmol/L Chloride (98-107) mmol/L Carbon Dioxide (22-30) mmol/L Anion Gap mmol/L BUN (9-20) mg/dL Creatinine (0.66-1.25) mg/dL Est GFR (CKD-EPI)AfAm (>60 ml/min/1.73 sqM) Est GFR (CKD-EPI)NonAf (>60 ml/min/1.73 sqM) Glucose (74-99) mg/dL POC Glucose (mg/dL) 153 H (70-110) mg/dL POC Glu Floral Designer ID Siva Gagnon Calcium (8.4-10.2) mg/dL Total Bilirubin (0.2-1.3) mg/dL AST (17-59) U/L ALT (4-49) U/L Alkaline Phosphatase (38-126) U/L Creatine Kinase (55-170) U/L Troponin I (0.000-0.034) ng/mL Total Protein (6.3-8.2) g/dL Albumin (3.5-5.0) g/dL 03/12/24 03/12/24 Range/Units 20:01 20:01 WBC (3.8-10.6) k/uL RBC (4.30-5.90) m/uL Hgb (13.0-17.5) gm/dL Hct (39.0-53.0) % MCV (80.0-100.0) fL MCH (25.0-35.0) pg MCHC (31.0-37.0) g/dL RDW (11.5-15.5) % Plt Count (150-450) k/uL MPV Neutrophils % % Lymphocytes % % Monocytes % % Eosinophils % % Basophils % % Neutrophils # (1.3-7.7) k/uL Lymphocytes # (1.0-4.8) k/uL Monocytes # (0-1.0) k/uL Eosinophils # (0-0.7) k/uL Basophils # (0-0.2) k/uL PT (10.0-12.5) sec INR (<1.2) APTT (22.0-30.0) sec Sodium 137 (137-145) mmol/L Potassium 4.1 (3.5-5.1) mmol/L Chloride 107 (98-107) mmol/L Carbon Dioxide 25 (22-30) mmol/L Anion Gap 5 mmol/L BUN 20 (9-20) mg/dL Creatinine 1.03 (0.66-1.25) mg/dL Est GFR (CKD-EPI)AfAm 80 (>60 ml/min/1.73 sqM) Est GFR (CKD-EPI)NonAf 69 (>60 ml/min/1.73 sqM) Glucose 159 H (74-99) mg/dL POC Glucose (mg/dL) (70-110) mg/dL POC Glu Floral Designer ID Calcium 8.6 (8.4-10.2) mg/dL Total Bilirubin 0.8 (0.2-1.3) mg/dL AST 62 H (17-59) U/L ALT 313 H (4-49) U/L Alkaline Phosphatase 158 H (38-126) U/L Creatine Kinase 35 L (55-170) U/L Troponin I <0.012 (0.000-0.034) ng/mL Total Protein 6.0 L (6.3-8.2) g/dL Albumin 3.5 (3.5-5.0) g/dL Disposition Clinical Impression: Cerebrovascular accident (CVA) Disposition: OTHER INSTITUTION NOT DEFINED Condition: Stable Referrals: Neelima Maciel MD [Primary Care Provider] - 1-2 days - Out of Hospital Transfer - Req. Specs Out of Hospital Transfer - Requested Specifics: Other Emergency Center ([facility])
[2024-03-12 20:19] LABS: ALT 313 U/L (4-49); AST 62 U/L (17-59); African American GFR (CKD) 80 (>60 ml/min/1.73 sqM); Albumin 3.5 g/dL (3.5-5.0); Alkaline Phosphatase 158 U/L (38-126); Anion Gap 5 mmol/L; Blood Urea Nitrogen 20 mg/dL (9-20); Calcium 8.6 mg/dL (8.4-10.2); Carbon Dioxide 25 mmol/L (22-30); Chloride 107 mmol/L (98-107); Creatine Kinase 35 U/L (55-170); Glucose 159 mg/dL (74-99); Non-African American GFR(CKD) 69 (>60 ml/min/1.73 sqM); Potassium 4.1 mmol/L (3.5-5.1); Sodium 137 mmol/L (137-145); Total Bilirubin 0.8 mg/dL (0.2-1.3)
[2024-03-12] MEDS: T.ENECTEPLASE 5 MG/ML VIAL IVP STA ×2 (20:19→20:27)
[2024-03-12] MEDS: ONDANSETRON 4 MG/2 ML VIAL IVP STA ×2 (20:26→20:28)
[2024-03-12] MEDS: SODIUM CHLORIDE 0.9% 1,000 ML IV STA (20:28)
[2024-03-12 20:29] LABS: Partial Thromboplastin Time 40.7 sec (22.0-30.0); Prothrombin Time 11.5 sec (10.0-12.5)
--- NOTE | 2024-03-12 20:37 | CT ---
EXAMINATION TYPE: CT angio head neck DATE OF EXAM: 03/12/2024 8:29 PM COMPARISON: None. CLINICAL INDICATION: Male, 78 years old with history of Neuro deficit, acute, stroke suspected; PHH, cva TECHNIQUE: Axially acquired helical CT angiogram of the head and neck was obtained with contrast. Axi al images are supplemented with 3D reconstructions and MIP images which were post-processed at an in dependent workstation. NASCET criteria used. Contrast used:65cc mL of Isovue 370 with IV Contrast, Oral contrast used: None. CT DLP: 376.2 mGycm, Automated exposure control for dose reduction was used. FINDINGS: CTA HEAD: No evidence of acute intracranial hemorrhage, mass effect, or midline shift. The ventricles, sulci, a nd cisterns are unremarkable. Vertebral arteries: The vertebral arteries are patent. Vertebral artery dominance: Codominant Basilar artery: The basilar artery is intact. The basilar artery bifurcation is normal. Internal Carotid arteries: The cervical, petrous, and cavernous segments are normal. There is calcifi ed at the plaque involving the supraclinoid intracranial carotid arteries bilaterally without evidenc e of flow-limiting stenosis. MORENITA: Patent with no evidence of aneurysm. ACOM: Present without evidence of aneurysm. MCA: Patent with no evidence of aneurysm. [employer] MA[employer]GER: Patent with no evidence of aneurysm. PCOM: Hypoplastic right P-comm. Left P-comm present. Dural sinuses: Patent. CTA NECK: Right Carotid System: The common carotid artery and external carotid artery are patent. The carotid bifurcation demonstrate s no evidence of hemodynamically significant stenosis. The remaining portions of the internal carotid artery demonstrate normal size without significant narrowing. Left Carotid System: The common carotid artery and external carotid artery are patent. The carotid bifurcation demonstrate s calcified carotid plaque without evidence of flow-limiting/significant stenosis. The remaining port ions of the internal carotid artery demonstrate normal size without significant narrowing. Vertebral arteries are patent without evidence hemodynamically significant stenosis. Patency of the main thoracic aortic arch branches. No evidence of hemodynamically significant stenosi s. Upper thorax: IMPRESSION: 1. No evidence of dissection of the cervical internal carotid arteries or vertebral arteries. 2. No any evidence of significant stenosis at the carotid bifurcations. 3. No evidence of intracranial high-grade stenosis or intracranial aneurysm. [facility], , 03/12/2024 8:35 PM
--- NOTE | 2024-03-12 20:57 | XR ---
EXAMINATION TYPE: XR chest 2V DATE OF EXAM: 03/12/2024 8:52 PM COMPARISON: Previous chest radiograph 08/10/2019. CLINICAL INDICATION: Male, 78 years old with history of altered mental status; [facility] TECHNIQUE: XR chest 2V Frontal and lateral views of the chest. FINDINGS: Lungs/Pleura: There is no evidence of pleural effusion, focal consolidation, or pneumothorax. Pulmonary vascularity: Unremarkable. Heart/mediastinum: Cardiomediastinal silhouette is unremarkable. Musculoskeletal: No acute osseous pathology. Other findings: None IMPRESSION: No acute cardiopulmonary disease/process. [facility], , 03/12/2024 8:55 PM
[2024-03-12 22:12] VITALS: TEMP 97.8
[2024-03-12 22:15] VITALS: PULSE 77
[2024-03-12 22:36] VITALS: RESP 17
[2024-03-12 22:43] VITALS: BP 147/63
== END 2024-03-12 22:45 | disposition other institution (70) ==
LOC: EC 19:49
DX: I67.9 Cerebrovascular disease, unspecified (principal); E78.5 Hyperlipidemia, unspecified
CPT/HCPCS: 36415; 93005; 80053; 82550; 84484; 85025; 85610; 85730; 71046; 70496; 70450; 70498; 99291; 96374; 96375; 96361 ×2; J2405; J3101; Q9967

== ENCOUNTER → 2024-08-08 | Outpatient (CLI) | payer MEDICARE ==
[2024-08-08 11:11] LABS: INR 1.1 (<1.2); Partial Thromboplastin Time 38.5 sec (22.0-30.0); Prothrombin Time 11.6 sec (10.0-12.5)
[2024-08-08 16:48] LABS: ALT 19 U/L (10-49); AST 16 U/L (14-35); Albumin/Globulin Ratio 2.11 Ratio (1.60-3.17); Alkaline Phosphatase 98 U/L (41-126); Blood Urea Nitrogen 16.4 mg/dL (9.0-27.0); Calcium 8.9 mg/dL (8.7-10.3); Carbon Dioxide 24.8 mmol/L (21.6-31.8); Chloride 103 mmol/L (96-109); Globulin 1.9 g/dL (1.6-3.3); Glucose 116 mg/dL (70-110); HGB 14.8 g/dL (13.0-17.0); MCH 32.9 pg (27.0-32.0); MCHC 34.4 g/dL (32.0-37.0); MCV 95.6 FL (80.0-97.0); Mean Platelet Volume 10.6 FL (9.5-12.2); NRBC Per 100 WBC 0 X 10*3/uL (0.00-0.01); Platelet Count 200 X 10*3/uL (140-440); Potassium 4.2 mmol/L (3.5-5.5); RDW 12.3 % (11.5-14.5); Sodium 137 mmol/L (135-145); Total Bilirubin 0.5 mg/dL (0.3-1.2); Total Protein 5.9 g/dL (6.2-8.2); WBC 5.38 X 10*3/uL (4.50-10.00)
== END | disposition home or self-care (01) ==
LOC: LABPAT 10:14
PROVIDERS: ATTEND Orthopaedic Surgery
DX: Z01.812 Encounter for preprocedural laboratory examination (principal); Z22.322 Carrier or suspected carrier of Methicillin resistant Staphylococcus aureus; M16.11 Unilateral primary osteoarthritis, right hip
CPT/HCPCS: 80053; 85027; 85610; 85730; 86850; 86900; 86901

== ENCOUNTER → 2024-09-30 | Outpatient (CLI) | payer MEDICARE ==
--- NOTE | 2024-09-30 15:23 | NM ---
EXAMINATION TYPE: NM DatScan Brain SPECT DATE OF EXAM: 09/30/2024 COMPARISON: NONE CLINICAL INDICATION: Male, 78 years old with history of R41.3,G25.0,R29.898; tremor TECHNIQUE: 10 drops of Lugol's solution was administered 1 hour prior to injection as a thyroid bloc deepti agent. After the administration of 4.6 mCi I-123 Ioflupane DaTscan. Images obtained [address] injection. SPECT images of the brain were acquired with axial and coronal reconstructions. FINDINGS: The DaTSCAN demonstrates reduced uptake of tracer throughout the bilateral striata. This appearance is consistent with the bilateral loss of the pre-synaptic dopaminergic terminals IMPRESSION: In movement disorders, This abnormal appearance is consistent with a diagnosis of either idiopathic P D or PS. 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 [facility], , 09/30/2024 3:21 PM
== END | disposition home or self-care (01) ==
LOC: RADNMMAIN 09:48
PROVIDERS: ATTEND Psychiatry & Neurology Neurology
DX: R41.3 Other amnesia (principal); G25.0 Essential tremor; R29.898 Other symptoms and signs involving the musculoskeletal system
CPT/HCPCS: 78803; A9584